=== PATIENT | male | born 1935 | race Caucasian/White ===

== ENCOUNTER 2020-07-02 07:31 | Emergency (ER) | payer OTHER, SELFPAY ==
--- NOTE | ~2020-07-02 | XR_ITS ---
EXAMINATION: XR shoulder LT min 2V DATE: 07/02/2020 08:22 INDICATION: Left shoulder injury. TECHNIQUE: 4 views of left shoulder were obtained. COMPARISON: None. FINDINGS: Bone alignment is normal. No fracture. There is mild osteoarthritis of glenohumeral joint a nd severe osteoarthritis of acromioclavicular joint. IMPRESSION: 1. Polyarticular osteoarthritis. Reviewed, dictated and finalized at location A.
--- NOTE | ~2020-07-02 | XR_ITS ---
EXAMINATION: XR clavicle LT DATE: 07/02/2020 08:22 INDICATION: Left shoulder injury. TECHNIQUE: 2 views of left clavicle were obtained. COMPARISON: None. FINDINGS: Bone alignment is normal. No fracture. Coracoclavicular interval is normal. There is mild o steoarthritis of glenohumeral joint and severe osteoarthritis of acromioclavicular joint. IMPRESSION: 1. Polyarticular osteoarthritis. Reviewed, dictated and finalized at location A.
[2020-07-02 07:40] VITALS: BP 177/100; PULSE 49; RESP 18; TEMP 36.6; O2SAT 93
[2020-07-02] MEDS: KETOROLAC (*BKC) 60 MG/2 ML VIAL IM (08:04)
[2020-07-02 08:32] LABS: Hematocrit 44.6 % (37.0-46.0); Mean Corpuscular HGB Conc 33.6 g/dL (32.0-36.0); Mean Corpuscular Hemoglobin 31.9 pg (27.0-31.0); Mean Corpuscular Volume 94.9 fL (78.0-102.0); Platelet Count Result 264 K/mm3 (150-420); Red Cell Distribution Width 13.1 % (11.6-14.4); White Blood Count 9.8 K/mm3 (4.8-10.8)
--- NOTE | 2020-07-02 08:44 | ED.UPPEXIN ---
HPI - Extremity Injury (Upper) General Chief Complaint: Extremity Injury, Upper Stated Complaint: injury to left shoulder Source: patient and family Mode of arrival: ambulatory History of Present Illness HPI narrative: Is an 85-year-old male with a history of hypertension and hypothyroidism that presents to the emergency department after he fell early this morning, lost his footing going down his backyard steps and injuring his left shoulder area with some small abrasion to his elbow, no loss of consciousness in has a decreased range of motion of his left shoulder secondary to pain, pain level about 8/10 pain. No loss of consciousness, no blurry vision no headaches no nausea vomiting no other sites of injury not complaining of any other injuries except to his left shoulder area. complaint: injury to: left Onset (ago): hour(s) Other Extremity Injury: Left: shoulder Severity scale (1-10): 8 Relieving factors: cold therapy Exacerbating factors: immobilization Context: fall Related Data Home Medications Medication Instructions Recorded Confirmed amlodipine 5 mg PO DAILY 07/02/20 07/02/20 donepezil 5 mg PO DAILY 07/02/20 07/02/20 hydrochlorothiazide 12.5 mg PO DAILY 07/02/20 07/02/20 levothyroxine 112 mcg PO DAILY 07/02/20 07/02/20 losartan 100 mg PO DAILY 07/02/20 07/02/20 Allergies Allergy/AdvReac Type Severity Reaction Status Date / Time No Known Allergies Allergy Verified 07/02/20 07:49 Review of Systems Review of Systems: All systems reviewed & are unremarkable except as noted in HPI and below PMFSH Past Medical History Medical History Dementia HTN (hypertension) Hypothyroidism (acquired) Exam Const: General: no acute distress and alert Orientation/consciousness: patient oriented x3 HENMT: Head: normal to inspection Eyes: Conjunctivae: conjunctivae normal Pupils: Equal, round and reactive pupils present EOM: EOMs intact bilaterally Neck: Neck: normal visual inspection, no lymphadenopathy and no meningeal signs Chest: Chest palpation & inspection: normal inspection of the chest Resp: Effort & Inspection: normal respiratory effort Auscultation: clear to auscultation bilaterally Cardio: Rate: regular rate Rhythm: regular rhythm GI: GI Palp: Yes Soft to palpation Auscultation: normal bowel sounds : Testes: Testes normal Back/Spine/Pelvis: Back: no CVA tenderness Skin: Wounds: wounds noted ( abrasion to left elbow area) Extrem: Other: pain elicited to the left shoulder area with palpation with a decreased range of motion has a good brisk brachial and radial pulse on the left currently no numbness or tingling in his left shoulder arm or fingers Course Course Emergency Course: reassessment of patient continues have a decreased range of motion in left shoulder, pain medicine given IM Toradol helped reduce his pain level, advised patient to follow-up with primary care physician within the next day or 2 for further evaluation treatment. Vital Signs Vital signs: Vital Signs Temperature 36.6 C 07/02/20 07:40 Pulse Rate 49 L 07/02/20 07:40 Respiratory Rate 18 07/02/20 07:40 Blood Pressure 177/100 H 07/02/20 07:40 Pulse Oximetry 93 07/02/20 07:40 Temperature 36.6 C 07/02/20 07:40 Pulse Rate 49 L 07/02/20 07:40 Respiratory Rate 18 07/02/20 07:40 Blood Pressure 177/100 H 07/02/20 07:40 Pulse Oximetry 93 07/02/20 07:40 MDM - Extremity Injury (Upper) Lab Data Result diagrams: 07/02/20 08:19 07/02/20 08:19 Labs: Lab Results 07/02/20 07/02/20 07/02/20 Range/Units 08:19 08:19 08:19 WBC 9.8 (4.8-10.8) K/mm3 RBC 4.70 (4.70-6.10) M/mm3 Hgb 15.0 (12.4-15.3) g/dL Hct 44.6 (37.0-46.0) % MCV 94.9 (78.0-102.0) fL MCH 31.9 H (27.0-31.0) pg MCHC 33.6 (32.0-36.0) g/dL RDW 13.1 (11.6-14.4) % Plt Count 264 (150-420) K/mm3 MPV 10.0
[2020-07-02 08:45] LABS: INR 1.1; Partial Thromboplastin Time 29.6 SEC (22.3-31.6); Prothrombin Time 11.4 Seconds (9.64-11.0)
[2020-07-02 08:47] LABS: Alanine Aminotransferase 24 U/L (16-63); Albumin Level 3.6 g/dL (3.4-5.0); Alkaline Phosphatase 117 U/L (46-116); Anion Gap 8 mmol/L (8-16); Aspartate Amino Transferase 32 U/L (15-37); Bilirubin,Total 0.7 mg/dL (0.00-1.00); Blood Urea Nitrogen 20 mg/dL (7-18); Calcium 8.4 mg/dL (8.5-10.1); Carbon Dioxide 27 mmol/L (21-32); Chloride 103 mmol/L (98-108); Estimated CRCL calculation 38 ml/min; Estimated Glomerular Filt Rate 54; Glucose 123 mg/dL (70-99); Osmolality Calculated 289 mOsm/kg (285-295); Potassium 4.2 mmol/L (3.5-5.1); Sodium 138 mmol/L (136-145); Total Protein 7.8 g/dL (6.4-8.2)
[2020-07-02 08:55] VITALS: BP 158/86; PULSE 50; RESP 20; TEMP 36.8; O2SAT 98
== END 2020-07-02 09:08 | disposition home or self-care (01) ==
PROVIDERS: Emergency Provider Emergency Medicine; PCP Internal Medicine
DX: S43.422A Sprain of left rotator cuff capsule, initial encounter (principal); W19.XXXA Unspecified fall, initial encounter; I10 Essential (primary) hypertension; E03.9 Hypothyroidism, unspecified
CPT/HCPCS: 36415; 73000; 73030; 80053; 85027; 85610; 85730; 96372; 99282; 99283; A4565; J1885

== ENCOUNTER 2020-08-30 14:49 | Emergency (ER) | payer OTHER, SELFPAY ==
--- NOTE | ~2020-08-30 | XR_ITS ---
XR tibia fibula RT 2V DATE: 08/30/2020 15:21 INDICATION: Right lower leg injury, pain TECHNIQUE: AP and lateral views COMPARISON: 09/07/2009 right knee FINDINGS: There is osteoarthritic spurring at the patellofemoral joint. Diffuse osteopenia. No fracture or dislocation, periosteal reaction or bone destruction of the tibia or fibula. Normal al ignment at the knee and ankle joints. IMPRESSION: Osteopenia Osteoarthritis at the right knee joint Reviewed, dictated and finalized at location A.
[2020-08-30 15:00] VITALS: BP 141/62; PULSE 52; RESP 16; TEMP 36.6; O2SAT 97
--- NOTE | 2020-08-30 15:04 | ED.LOWEXIN ---
HPI - Extremity Injury (Lower) General Chief Complaint: Extremity Injury, Lower Stated Complaint: injured leg Time Seen by Provider: 08/30/20 15:04 Source: patient Limitations: no limitations History of Present Illness HPI Narrative: 85-year-old man comes in today and by wheelchair complaining of right leg pain with ambulation. He states that yesterday he was sawing a board when it shot out and struck him in the right ambriz. He denies any other injury. His says it has been a long time since his last tetanus shot. He denies any knee or ankle pain. complaint: leg injury Onset (ago): day(s) (1) Injury: Right: ankle Type of Injury: blunt Place: home Severity: moderate Relieving factors: rest Exacerbating factors: weight bearing Context: direct blow Associated symptoms: unable to bear weight Related Data Home Medications Medication Instructions Recorded Confirmed amlodipine 5 mg PO DAILY 07/02/20 08/30/20 donepezil 10 mg PO DAILY 07/02/20 08/30/20 losartan 100 mg PO DAILY 07/02/20 08/30/20 levothyroxine 125 mcg PO DAILY 08/30/20 08/30/20 Allergies Allergy/AdvReac Type Severity Reaction Status Date / Time No Known Allergies Allergy Verified 07/02/20 07:49 Review of Systems Gastrointestinal: Gastrointestinal: Denies nausea and Denies vomiting Musculoskeletal: Musculoskeletal: Denies arthralgias and Denies joint swelling Integumentary/Breasts: Skin/Breast: Denies pruritus, Denies rash and Denies skin ulcer Comments: contusion/abrasion on right ambriz Neurologic: Denies vertigo, Reports dizziness and Denies syncope Hematologic/Lymphatic: Hematologic/Lymphatic: Denies easy bleeding and Denies easy bruising PMFSH Past Medical History Medical History (Updated 08/30/20 @ 15:16 by Mateusz Craft MD) Dementia HTN (hypertension) Hypothyroidism (acquired) Surgical History Surgical History (Updated 08/30/20 @ 15:13 by Mateusz Craft MD) History of back surgery Social History Social History Smoking status: Never smoker Alcohol intake: never Substance use: never Living arrangements: with family Occupation/Education: retired Exam Const: General: healthy appearing, no acute distress and alert Orientation/consciousness: patient oriented x3 Limitations: no limitations Eyes: Conjunctivae: conjunctivae normal Pupils: Equal, round and reactive pupils present EOM: EOMs intact bilaterally Resp: Effort & Inspection: normal respiratory effort and not labored Auscultation: clear to auscultation bilaterally, no rales, no rhonchi and no wheezes Cardio: Rate: regular rate Rhythm: regular rhythm Heart sounds: no murmurs Skin: General skin exam: normal color, no jaundice and no pallor Rashes: no rashes Other: 2.5 cm abrasion/contusion over the right middle ambriz. Minimal swelling. He has normal range of motion of the right hip knee and ankle. There is no calf tenderness or swelling. Neuro: General: patient oriented x3, moves all extremities and CN's II-XI intact bilaterally Speech: normal speech Course Vital Signs Vital signs: Vital Signs Temperature 36.6 C 08/30/20 15:00 Pulse Rate 52 L 08/30/20 15:00 Respiratory Rate 16 08/30/20 15:00 Blood Pressure 141/62 H 08/30/20 15:00 Pulse Oximetry 97 08/30/20 15:00 Temperature 36.6 C 08/30/20 15:00 Pulse Rate 52 L 08/30/20 15:00 Respiratory Rate 16 08/30/20 15:00 Blood Pressure 141/62 H 08/30/20 15:00 Pulse Oximetry 97 08/30/20 15:00 MDM - Extremity Injury (Lower) Differential Diagnosis Differential diagnosis: Likely other ( Contusion, tibia or fibula fracture. ) Discharge Plan Discharge Clinical Impression: Contusion of leg, right Qualifiers: Encounter type: initial encounter Qualified Code(s): S80.11XA - Contusion of right lower leg, initial encounter Patient Disposition: Home, Self-Care Condition: Stable Instructions:
[2020-08-30] MEDS: TETANUS,DIPHTHERIA,AC PERTUSSIS ADULT 0.5 ML (ADACEL) IM (15:12)
[2020-08-30 15:52] VITALS: RESP 19
== END 2020-08-30 15:52 | disposition home or self-care (01) ==
PROVIDERS: Emergency Provider Emergency Medicine; PCP Internal Medicine
DX: S80.11XA Contusion of right lower leg, initial encounter (principal); I10 Essential (primary) hypertension; E03.9 Hypothyroidism, unspecified
CPT/HCPCS: 73590; 90471; 90715; 99282; 99283

== ENCOUNTER 2021-03-22 08:08 | Outpatient (CLI) | payer OTHER, SELFPAY ==
--- NOTE | ~2021-03-22 | US_ITS ---
EXAMINATION: US art doppler w press LE BI DATE: 03/22/2021 09:22 INDICATION: Peripheral vascular disease with nonhealing ulcers at the bilateral lower limbs. TECHNIQUE: Segmental pressures and plethysmographic and Doppler waveforms of the brachial and lower e xtremity arteries were obtained. COMPARISON: None. FINDINGS: Right and left brachial artery pressures of 158 mm Hg and 167 mm Hg, respectively, are concordant (no rmal difference <= 30 mmHg). The right and left high-thigh pressure indices are 1.08 and 0.99, respec tively (normal > 1.2). The right ankle-brachial index (ANDRES) is 0.76 (normal >= 0.9-1). The right great toe-brachial index (T BI) is 0.49 (normal >= 0.6-0.8). The right lower extremity segmental pressure gradients are increased between the right thigh and the right [id number] popliteal artery. (Normal gradients <= 20-30 mm Hg between adjacent levels on the same leg or the same levels on the two legs). There is also no disc ernible pulse in the right posterior tibial artery or evident vascular flow on color Doppler. Arteria l waveforms are biphasic with brisk systolic upstrokes and the arteries of the right lower limb with the exception of the occluded right posterior tibial artery. The left ANDRES is 0.50. The left TBI is 0.39. The left lower extremity segmental pressure gradients are increased between the left thigh and the above-knee popliteal artery. Arterial waveforms are biphasi c with brisk systolic upstrokes throughout. IMPRESSION: 1. Bilateral arterial occlusive disease with mild to moderately decreased right and moderate to sever christel decreased left ABIs and TBIs. 2. Occluded right posterior tibial artery. Reviewed, dictated and finalized at location A. IMPRESSION: 1. Bilateral arterial occlusive disease with mild to moderately decreased right and moderate to severely decreased left ABIs and TBIs. 2. Occluded right posterior tibial artery.
== END 2021-03-22 08:09 | disposition home or self-care (01) ==
PROVIDERS: PCP Internal Medicine; Visit Provider Podiatrist Foot & Ankle Surgery
DX: L97.918 Non-pressure chronic ulcer of unspecified part of right lower leg with other specified severity (principal); L97.928 Non-pressure chronic ulcer of unspecified part of left lower leg with other specified severity; I73.9 Peripheral vascular disease, unspecified
CPT/HCPCS: 93923

== ENCOUNTER 2022-02-02 14:41 | Inpatient (IN) | payer OTHER, SELFPAY ==
[2022-02-02] VITALS (13 sets, daily range): BP systolic 108–198; BP diastolic 68–95; PULSE 53–97; RESP 12–24; TEMP 36.6–36.8; O2SAT 92–97; BMI 26.4
--- NOTE | ~2022-02-02 | XR_ITS ---
EXAMINATION: XR hand RT min 3V DATE: 02/04/2022 15:22 INDICATION: Pain, swelling and bruising region of the third proximal interphalangeal joint post fall. TECHNIQUE: Posteroanterior, oblique and lateral views of the right hand were obtained. COMPARISON: None. FINDINGS: Diffuse osteopenia. No fracture or traumatic malalignment. Polyarticular osteoarthritis, severe at th e third metacarpophalangeal joint with secondary mild palmar subluxation. Moderate osteoarthritis at the distal radioulnar, first carpometacarpal and second and third distal interphalangeal joints. Mild osteoarthritis at the wrist, midcarpal, triscaphe, first and second metacarpophalangeal and remainin g interphalangeal joints. Soft tissue swelling throughout the right third digit. IMPRESSION: 1. No acute osseous abnormality. 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 Reviewed, dictated and finalized at location A. IMPRESSION: 1. No acute osseous abnormality. Moderate to severe polyarticular osteoarthriti s.
--- NOTE | ~2022-02-02 | XR_ITS ---
XR hip RT min 3V w AP pelvis 02/02/2022 15:11 Indication: Right hip pain after fall Procedure: 3 views right hip Comparison: 03/26/2015 Findings: There is a mildly displaced comminuted right femoral intertrochanteric fracture with medial displacement of the lesser trochanter. There is degenerative change of the hips and lower lumbar spi ne. Pelvic rings are intact. Impression: 1: Mildly displaced comminuted right femoral intertrochanteric fracture. Reviewed, dictated and finalized at location A. Impression: 1: Mildly displaced comminuted right femoral intertrochanteric fracture.
--- NOTE | ~2022-02-02 | XR_ITS ---
EXAMINATION: XR surgery orthopedic DATE: 02/03/2022 16:27 INDICATION: Internal fixation of an intratrochanteric right hip fracture TECHNIQUE: 5 fluoroscopic images of the right hip and femur were obtained during procedure performed by Dr. Huber. Radiologist was not present for the imaging or procedure. The amount of fluoroscopy t jenn used during this procedure was 1.1 minutes. COMPARISON: 02/02/2022 FINDINGS: Interval reduction of the mildly comminuted intertrochanteric fracture the proximal right femur the m ain proximal and distal weightbearing fragments now in near-anatomic alignment. This is fixed with a long antegrade intramedullary alesia with femoral neck dynamic compression screw and distal interlocking screw at the proximal femoral diaphysis. The intramedullary alesia extends to the distal metaphysis of the femur. There is small amount of residual distraction of a small lesser trochanteric fragment whic h is not included within the fixation. Right femoral head remains normally centered at the right acet abulum with normal joint space. IMPRESSION: 1. Near-anatomic alignment post open reduction internal fixation of a mildly comminuted intratrochant srini fracture of the proximal right femur. See procedure note for further detail. Reviewed, dictated and finalized at location A. IMPRESSION: 1. Near-anatomic alignment post open reduction internal fixation of a mildly co mminuted intratrochanteric fracture of the proximal right femur. See procedure note for further detail.
--- NOTE | 2022-02-02 14:48 | ECG_ITS ---
Measurements Intervals [place] Rate: 51 P: 40 FL: 175 QRS: -2 QRSD: 96 T: 46 QT: 506 QTc: 470 Interpretive Statements SINUS BRADYCARDIA MODERATE VOLTAGE CRITERIA FOR LVH, CONSIDER NORMAL VARIANT [MEETS CRITERIA IN ONE OF: R(aVL), S(V1), R(V5), R(V5/V6)+S(V1)] PROLONGED QT INTERVAL ABNORMAL ECG NO PREVIOUS ECG AVAILABLE FOR COMPARISON Electronically Signed On 02-02-2022 17:56:01 CDT by Mack Lee M.D.
[2022-02-02 15:29] LABS: Basophils Percent Auto 0.5 % (0.2-1.2); Eosinophils Absolute Auto 0.2 K/mm3 (0-0.3); Eosinophils Percent Auto 3.2 % (0-4.4); Hematocrit 41.2 % (42.0-52.0); Hemoglobin 13.7 g/dL (14.0-18.0); Immature Granulocyte Absolute 0.03 K/mm3 (0.00-0.031); Immature Granulocyte Percent A 0.4 % (0-0.5); Lymphocytes Absolute Auto 1.95 K/mm3 (0.9-3.2); Lymphocytes Percent Auto 26.2 % (18.3-44.2); Mean Corpuscular HGB Conc 33.3 g/dl (32-36); Mean Corpuscular Hemoglobin 32.5 pg (26-34); Mean Corpuscular Volume 97.6 fl (80-100); Mean Platelet Volume 10.2 fl (7.4-10.4); Monocytes Absolute Auto 0.7 K/mm3 (0.1-0.6); Monocytes Percent Auto 9.1 % (2.6-8.5); Neutrophils Absolute Auto 4.5 K/mm3 (1.3-6.7); Neutrophils Percent Auto 60.6 % (45.5-73.1); Platelet Count Result 245 k/mm3 (150-375); Red Blood Count 4.22 M/mm3 (4.6-6.20); Red Cell Distribution Width 13.7 % (11.5-14.5); White Blood Count 7.5 K/mm3 (4.5-10.0)
[2022-02-02 15:32] LABS: Alanine Aminotransferase 16 U/L (4-50); Albumin Level 3.9 g/dL (3.5-5.1); Alkaline Phosphatase 117 U/L (38-126); Anion Gap 4 mmol/L (8-16); Aspartate Amino Transferase 35 U/L (17-59); Bilirubin,Total 0.9 mg/dL (0.2-1.3); Blood Urea Nitrogen 16 mg/dL (9-20); Calcium 8.4 mg/dL (8.4-10.2); Carbon Dioxide 30 mmol/L (22-30); Chloride 105 mmol/L (98-107); Estimated CRCL calculation 49 ml/min; Estimated Glomerular Filt Rate > 60; Glucose 117 mg/dL (65-110); Potassium 3.8 mmol/L (3.4-5.0); Sodium 139 mmol/L (137-145)
--- NOTE | 2022-02-02 15:34 | ED.FALL ---
HPI - Fall General Chief Complaint: Fall Stated Complaint: FALL BROKEN HIP? Time Seen by Provider: 02/02/22 15:06 History of Present Illness HPI Narrative: 86 y/o male presents to the ER today for complaints of right hip pain after having fall at home. says that he has a history of dementia. He was walking from kitchen to the living room. She heard a noise like his leg hit the table. She came in the room as he was falling down. He has pain in right hip and is unable to move leg without significant pain. He was brought in by EMS. No numbness or tingling. Denies any other injury from the fall. Related Data Home Medications Medication Instructions Recorded Confirmed amlodipine 5 mg PO DAILY 07/02/20 08/30/20 donepezil 10 mg PO DAILY 07/02/20 08/30/20 levothyroxine 125 mcg PO DAILY 08/30/20 08/30/20 olmesartan 20 mg PO DAILY 02/02/22 sertraline 25 mg PO DAILY 02/02/22 tramadol 50 mg PO Q6H PRN 02/02/22 Allergies Allergy/AdvReac Type Severity Reaction Status Date / Time No Known Allergies Allergy Verified 07/02/20 07:49 Review of Systems Constitutional: Constitutional: Denies chills, Denies fever(s) and Denies weakness Eyes: Eyes: Reports no additional eye complaints ENT: Denies vertigo and Denies dizziness Cardiovascular: Cardiovascular: Denies chest pain Respiratory: Respiratory: Denies chest congestion, Denies cough, Denies dyspnea and Denies wheezing Gastrointestinal: Gastrointestinal: Denies abdominal pain, Denies constipation, Denies diarrhea, Denies nausea and Denies vomiting Genitourinary: Genitourinary: Reports no additional male genitourinary complaints Musculoskeletal: Musculoskeletal: Reports as per HPI, Denies back pain and Reports arthralgias Neurologic: Denies vertigo, Denies dizziness, Denies syncope, Denies headache(s), Denies numbness and Denies weakness Psychiatric: Psychiatric: Reports no additional psychiatric complaints Endocrine: Endocrine: Reports no additional endocrine complaints Hematologic/Lymphatic: Hematologic/Lymphatic: Denies easy bleeding and Denies easy bruising PMFSH Past Medical History Medical History Dementia HTN (hypertension) Hypothyroidism (acquired) Surgical History Surgical History History of back surgery Social History Social History Smoking status: Never smoker Alcohol intake: never Substance use: never Exam Const: General: no acute distress and alert (at baseline) HENMT: Head: normal to inspection Eyes: Conjunctivae: conjunctivae normal Pupils: Equal, round and reactive pupils present Neck: Neck: normal visual inspection Chest: Chest palpation & inspection: normal inspection of the chest Resp: Effort & Inspection: normal respiratory effort Cardio: Rate: regular rate Rhythm: regular rhythm GI: Auscultation: normal bowel sounds Other: non-tender Skin: General skin exam: normal color Rashes: no rashes Wounds: no wounds Neuro: General: CN's II-XI intact bilaterally Speech: Abnormal speech present Other: lower extremity sensation intact Extrem: Other: right leg externally rotated with shortening, severe pain in right hip with any movement Psych: Mental Status: mental status grossly normal Affect: normal affect Attitude: cooperative Course Course Emergency Course: [address] Mcelroy, will plan to admit to hospitalist service. 1635 Discussed with Amanda LUNA, hospitalist, accepting patient for admission to Dr. Azul. Vital Signs Vital signs: Vital Signs Temperature 36.6 C 02/02/22 14:36 Pulse Rate 58 L 02/02/22 14:36 Respiratory Rate 17 02/02/22 14:36 Blood Pressure 163/95 H 02/02/22 14:36 Pulse Oximetry 96 02/02/22 14:36 Temperature 36.6 C 02/02/22 14:36 Pulse Rate 53 L 02/02/22 16:16 Respirat
[2022-02-02 15:38] LABS: INR 1.1; Prothrombin Time 13.5 Seconds (11.1-14.7)
[2022-02-02] MEDS: MORPHINE SULFATE (*CRX) 2 MG/ML INJ IV PUSH ×2 (16:15→22:12)
[2022-02-02] MEDS: hydrALAZINE HCL 20 MG/ML VIAL 10 MG IV PUSH (16:15)
[2022-02-02] MEDS: ONDANSETRON INJ 4 MG/2 ML VIAL IV PUSH ×2 (17:16→22:12)
[2022-02-02 18:28] LABS: SARS-CoV-2 RNA PCR Negative
--- NOTE | 2022-02-02 19:00 | PM.IMHP ---
H&P: HPI History of Present Illness Date/Time: 02/02/22 19:00 Chief Complaint: Right hip pain after fall. Narrative: This is an 86-year-old male with dementia, hypertension, and hypothyroidism who presented to the emergency department via EMS from home for evaluation of right hip pain after a fall. Due to his dementia he is not able to provide a completely accurate history and as such some of the following is obtained via discussions with his at bedside, with the patient's permission. He is supposed to ambulate with a cane or a walker but he does not always do so. This afternoon the patient's heard a noise in the other room and when she came to check on him he was in the process of falling (not walking with his cane or walker) and he landed hard on his right hip. He complained of immediate pain in the hip with and they were unable to get him up. Imaging done on arrival to the ER showed a mildly displaced and comminuted right femoral intertrochanteric fracture and he is being admitted in this setting. At the time my evaluation he is complaining of nausea and he had several episodes of emesis after receiving IV morphine. He has no other complaints and is really not having much hip discomfort if he is lying still. The patient and his deny other injuries; they specifically deny head trauma and loss of consciousness in the fall. The patient does not remember how he fell he does not think he was feeling lightheaded or dizzy prior to the fall. Review of Systems Review of Systems: Twelve systems were reviewed. Somewhat limited given the patient's underlying dementia. does provide a majority of the answers. He has not had any recent cold or flu symptoms. No sick contacts. He has never complained of chest pain or shortness of breath. No known history of cardiac or pulmonary disease. The patient occasionally wanders at nighttime. He will get a bit irritable and angry but he has never demonstrate aggressive behavior. Except as documented, all other systems were negative. [facility] Past Medical History Medical History (Updated 02/02/22 @ 22:34 by Amanda Gee PA-C) Dementia Hypertension Hypothyroidism (acquired) Surgical History Surgical History (Updated 02/02/22 @ 22:31 by Amanda Gee PA-C) History of back surgery History of cataract extraction with lens replacement History of lumbar laminectomy L4-L5. Family History Family History (Updated 02/02/22 @ 22:31 by Amanda Gee PA-C) Other Family history unknown Social History Social History (Updated 02/02/22 @ 22:32 by Amanda Gee PA-C) Social History: Surrogate decision maker: Dixie Shoemaker, . Code status: Full code. Smoking status: Former smoker Alcohol intake: never Substance use: never Additional living arrangements comments: The patient lives with his in [place]. 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 Spiritual care concerns: No Meds Home Medications and Allergies Home Medications Medication Instructions Recorded Confirmed Type amlodipine 5 mg PO DAILY 07/02/20 08/30/20 History donepezil 10 mg PO DAILY 07/02/20 08/30/20 History levothyroxine 125 mcg PO DAILY 08/30/20 08/30/20 History olmesartan 20 mg PO DAILY 02/02/22 History sertraline 25 mg PO DAILY 02/02/22 History tramadol 50 mg PO Q6H PRN 02/02/22 History Allergies Allergy/AdvReac Type Severity Reaction Status Date / Time No Known Allergies Allergy Verified 07/02/20 07:49 Vital Signs Vital Signs - 24 hr 02/02/22 14:36 02/02/22 16:16 02/02/22 16:52 Temperature 97.9 F Pulse Rate 58 L 53 L 64 Respiratory Rate 17 16 12 Blood Pressure 163/95 H 198/94 H Pulse Oximetry 96 97 02/02/22 17:00 02/02/22 17:02 02/02/22 17:15 Temperature Pulse Rate 76 71 68 Respiratory Rate 19 24 H 15 Blood Pressure 148/94 H 145/94 H Pulse Oximetry 97 02/02/22 17:30 02/02/22 17:53 02/02/22 18:00 Temperatu
[2022-02-03] VITALS (16 sets, daily range): BP systolic 148–184; BP diastolic 61–97; PULSE 61–87; RESP 12–92; TEMP 36.3–37.4; O2SAT 85–98
[2022-02-03] MEDS: LEVOTHYROXINE SODIUM 125 MCG TABLET PO (05:53)
[2022-02-03] MEDS: traMADol HCL (*CRX) 25 MG TABLET PO (05:53)
[2022-02-03 07:12] LABS: Hematocrit 41.8 % (42.0-52.0); Hemoglobin 13.9 g/dL (14.0-18.0); Mean Corpuscular HGB Conc 33.3 g/dl (32-36); Mean Corpuscular Hemoglobin 31.9 pg (26-34); Mean Corpuscular Volume 95.9 fl (80-100); Mean Platelet Volume 10.1 fl (7.4-10.4); Platelet Count Result 230 k/mm3 (150-375); Red Blood Count 4.36 M/mm3 (4.6-6.20); Red Cell Distribution Width 13.7 % (11.5-14.5); White Blood Count 9.1 K/mm3 (4.5-10.0)
[2022-02-03 07:22] LABS: Anion Gap 5 mmol/L (8-16); Blood Urea Nitrogen 15 mg/dL (9-20); Calcium 8.8 mg/dL (8.4-10.2); Carbon Dioxide 28 mmol/L (22-30); Chloride 104 mmol/L (98-107); Estimated CRCL calculation 49 ml/min; Estimated Glomerular Filt Rate > 60; Glucose 145 mg/dL (65-110); Sodium 137 mmol/L (137-145)
[2022-02-03 07:59] LABS: Glucose Point of Care 139 mg/dl (65-105)
[2022-02-03] MEDS: SERTRALINE HCL 25 MG TABLET PO (08:37)
[2022-02-03] MEDS: amLODIPine BESYLATE 5 MG TABLET PO (08:37)
[2022-02-03] MEDS: OLMESARTAN MEDOXOMIL 20 MG TABLET PO (08:38)
--- NOTE | 2022-02-03 09:30 | PM.IMPN ---
Progress Note: A&P Assessment and Plan (1) Closed intertrochanteric fracture of right femur: Qualifiers: Encounter type: initial encounter Fracture alignment: nondisplaced Qualified Code(s): S72.144A - Nondisplaced intertrochanteric fracture of right femur, initial encounter for closed fracture Code(s): S72.141A - Displaced intertrochanteric fracture of right femur, initial encounter for closed fracture Status: Acute Assessment and Plan: Imaging showed a close inter trochanteric fracture of the right femur NPO after midnight for possible surgical repair tomorrow per Dr. Huber. Analgesics available as needed Post op care per ortho EKG SB DVT prophylaxis per ortho (2) Fall from ground level: Code(s): W18.30XA - Fall on same level, unspecified, initial encounter Status: Acute Assessment and Plan: Ambulates with a cane or walker at baseline not always compliant Fall on the right side xray shows a femur fracture (3) Dementia: Code(s): F03.90 - Unspecified dementia without behavioral disturbance Status: Acute Assessment and Plan: A&O x 1 seems to be at baseline Continue donepezil and sertraline (4) Hypertension: Code(s): I10 - Essential (primary) hypertension Status: Acute Assessment and Plan: BP 148/97 running a bit high, likely due to pain. antihypertensives restarted Trend BP adjust therapy indicated (5) Hypothyroidism (acquired): Code(s): E03.9 - Hypothyroidism, unspecified Status: Acute Assessment and Plan: Continue levothyroxine TSH 6.170, T4 pending Titrate levothyroxine as indicated Time Spent With Patient Time with patient: Greater than 35 minutes Subjective Date/time seen: 02/03/22 0930 Interval history: Date/Time: 02/02/22 19:00 Narrative: This is an 86-year-old male with dementia, hypertension, and hypothyroidism who presented to the emergency department via EMS from home for evaluation of right hip pain after a fall. Due to his dementia he is not able to provide a completely accurate history and as such some of the following is obtained via discussions with his at bedside, with the patient's permission. He is supposed to ambulate with a cane or a walker but he does not always do so. This afternoon the patient's heard a noise in the other room and when she came to check on him he was in the process of falling (not walking with his cane or walker) and he landed hard on his right hip. He complained of immediate pain in the hip with and they were unable to get him up. Imaging done on arrival to the ER showed a mildly displaced and comminuted right femoral intertrochanteric fracture and he is being admitted in this setting. At the time my evaluation he is complaining of nausea and he had several episodes of emesis after receiving IV morphine. He has no other complaints and is really not having much hip discomfort if he is lying still. The patient and his deny other injuries; they specifically deny head trauma and loss of consciousness in the fall. The patient does not remember how he fell he does not think he was feeling lightheaded or dizzy prior to the fall. Date/Time 02/03/22 0930 Patient was lying in bed he was trying to urinate. I feel like he could not figure it out because he got very frustrated through the urinal. He is very hard of hearing alert oriented x1. He denied having any complaints even pain. Review of systems was unreliable due to patient's mental status and healthcare condition. Review of Systems Review of Systems: All systems reviewed & are unremarkable except as noted in HPI and below ROS unobtainable: Yes unobtainable due to mental status Exam Const: General: cooperative, healthy appearing, no acute distress, well developed, alert and awake Nutritional Appearance: well nourished Orientation/conscio
--- NOTE | 2022-02-03 10:11 | PC.NURSE ---
I received a call from pt's primary care provider's case therapist who wanted an update on pt's condition and provided me with the PCP's name and phone number and asked that I call him. PCP Dr. Mckeon ([phone]) has been pt's PCP for more than 20 years and pt's daughter works for Dr. Mckeon as well so he is very well versed with pt's condition/history. Dr. Mckeon stated that he sees pt every three months and is regularly updated about changes in pt's health from pt's daughter as well. Dr. Mckeon stated that pt's orientation baseline is A&O 0-1. Dr. Mckeon also stated that he believes that pt needs to go to SNF after surgery and likely [facility] care facility after that and is offering his assistance to care coordination to make that happen.
--- NOTE | 2022-02-03 10:18 | PM.CNOR ---
Assessment and Plan Assessment and plan (1) Closed intertrochanteric fracture of right femur: Qualifiers: Encounter type: initial encounter Fracture alignment: displaced Qualified Code(s): S72.141A - Displaced intertrochanteric fracture of right femur, initial encounter for closed fracture Code(s): S72.141A - Displaced intertrochanteric fracture of right femur, initial encounter for closed fracture Status: Acute Assessment and Plan: Discussed nonoperative and operative treatment options with the patient and family and power of privacy attorney. Risks and benefits of each as well as alternatives were reviewed. All of the patient's and family questions were answered. The risks of surgery reviewed including but not limited to: Neurovascular damage, wound complication, infection, blood clot, pulmonary embolus, stroke, myocardial infarction, and anesthetic risks up to and including . Continued pain and possible dysfunction were explained. Specific risks of the procedure including later recurrence of deformity. No guarantees were offered. If hardware used, discussed risk of failure/ breakage and possible need for removal. If complications occur, the patient understands the need for further treatment, possible further surgery. Patient and power of privacy attorney verbalizes understanding and wishes to proceed. PLAN: Right hip trochanteric nail History of Present Illness HPI Consult date: 02/03/22 Requesting physician: Amanda Gee PA-C Chief complaint: R Hip Fracture Narrative: 86-year-old gentleman with dementia but still living at home had a witnessed fall yesterday hitting the right leg on a table. Brought to the emergency room and found to have a hip fracture. Admitted for further care. Patient is awake but disoriented x3. Comfortable at rest but complains of right hip pain with passive movement of the leg. No report of loss of consciousness or head injury. Patient is a independent ambulator. Review of Systems Constitutional: Constitutional: Denies fever(s) Eyes: Eyes: Denies blurry vision ENT: Reports Normal hearing present Cardiovascular: Cardiovascular: Denies chest pain and Denies dyspnea Respiratory: Respiratory: Denies dyspnea and Denies wheezing Gastrointestinal: Gastrointestinal: Denies abdominal pain Genitourinary: Genitourinary: Denies urinary urgency Musculoskeletal: Musculoskeletal: Reports as per HPI and Denies numbness Integumentary/Breasts: Skin/Breast: Denies changing lesions and Denies sores Neurologic: Reports Normal hearing present, Denies behavioral changes, Denies confusion, Denies numbness and Denies convulsions Psychiatric: Psychiatric: Denies behavioral changes, Reports confusion (Disoriented x3) and Denies hallucinations Endocrine: Endocrine: Denies heat intolerance Hematologic/Lymphatic: Hematologic/Lymphatic: Denies easy bleeding Allergic/Immunologic: Allergic/Immunologic: Denies wheezing PMFSH Past Medical History Medical History Dementia Hypertension Hypothyroidism (acquired) Surgical History Surgical History History of back surgery History of cataract extraction with lens replacement History of lumbar laminectomy L4-L5. Family History Family History Other Family history unknown Social History Social History Social History: Surrogate decision maker: Dixie Shoemaker, . Code status: Full code. Smoking status: Former smoker Alcohol intake: never Substance use: never Additional living arrangements comments: The patient lives with his in [place]. 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 Spiritual care concerns: No Meds Home Medications and Allergies Home Medications Medi
[2022-02-03 13:34] LABS: Free T4 Free Thyroxine Reflex 0.98 ng/dL (0.78-2.19)
--- NOTE | 2022-02-03 14:05 | WPDANESEPPF ---
Anes - Initial Pre Proc Eval Procedure: Operation Date: 02/03/22 15:00 Proposed Procedures p Right Hip Intertrochanteric Nail - Fede Huber MD Date/Time: 02/03/22 14:05 Surgeon: Michaela Azul MD Pre Op Diagnosis: R Hip Fracture Patient Data Age: 86 Gender: M Height: 1.7 m Weight: 74 kg Last Vital Signs Temp 36.7 C 02/03/22 08:00 Pulse 68 02/03/22 08:00 Resp 92 H 02/03/22 08:00 BP 148/97 H 02/03/22 08:00 Pulse Ox 96 02/03/22 08:12 Allergies Allergy/AdvReac Type Severity Reaction Status Date / Time No Known Allergies Allergy Verified 07/02/20 07:49 Home Medications Medication Instructions Recorded Confirmed Type amlodipine 5 mg PO DAILY 07/02/20 08/30/20 History donepezil 10 mg PO DAILY 07/02/20 08/30/20 History levothyroxine 125 mcg PO DAILY 08/30/20 08/30/20 History olmesartan 20 mg PO DAILY 02/02/22 History sertraline 25 mg PO DAILY 02/02/22 History tramadol 50 mg PO Q6H PRN 02/02/22 History Laboratory Tests 02/02/22 02/02/22 02/02/22 14:58 14:58 14:58 WBC 7.5 K/mm3 K/mm3 (4.5-10.0) RBC 4.22 M/mm3 L M/mm3 (4.6-6.20) Hgb 13.7 g/dL L g/dL (14.0-18.0) Hct 41.2 % L % (42.0-52.0) MCV 97.6 fl fl (80-100) MCH 32.5 pg pg (26-34) MCHC 33.3 g/dl g/dl (32-36) RDW 13.7 % % (11.5-14.5) Plt Count 245 k/mm3 k/mm3 (150-375) MPV 10.2 fl fl (7.4-10.4) Immature Gran % (Auto) 0.4 % % (0-0.5) Neut % (Auto) 60.6 % % (45.5-73.1) Lymph % (Auto) 26.2 % % (18.3-44.2) [place] % (Auto) 9.1 % H % (2.6-8.5) Eos % (Auto) 3.2 % % (0-4.4) Baso % (Auto) 0.5 % % (0.2-1.2) Lymph # (Auto) 1.95 K/mm3 K/mm3 (0.9-3.2) [place] # (Auto) 0.7 K/mm3 H K/mm3 (0.1-0.6) Eos # (Auto) 0.2 K/mm3 K/mm3 (0-0.3) Baso # (Auto) 0.0 K/mm3 K/mm3 (0.0-0.1) Abs Immat Gran (auto) 0.03 K/mm3 K/mm3 (0.00-0.031) Absolute Neuts (auto) 4.5 K/mm3 K/mm3 (1.3-6.7) Absolute Nucleated RBC 0.0 K/mm3 K/mm3 (0.0-0.012) Nucleated RBC % 0.0 % % (0.0-0.2) PT 13.5 Seconds Seconds (11.1-14.7) INR 1.1 Sodium 139 mmol/L mmol/L (137-145) Potassium 3.8 mmol/L mmol/L (3.4-5.0) Chloride 105 mmol/L mmol/L (98-107) Carbon Dioxide 30 mmol/L mmol/L (22-30) Anion Gap 4 mmol/L L mmol/L (8-16) BUN 16 mg/dL mg/dL (9-20) Creatinine 0.90 mg/dL mg/dL (0.7-1.3) Estim Creat Clear Calc 49 ml/min ml/min Estimated GFR > 60 (59 - ) Glucose 117 mg/dL H mg/dL (65-110) POC Capillary Glucose Calcium 8.4 mg/dL mg/dL (8.4-10.2) Magnesium Total Bilirubin 0.9 mg/dL mg/dL (0.2-1.3) AST 35 U/L U/L (17-59) ALT 16 U/L U/L (4-50) Alkaline Phosphatase 117 U/L U/L (38-126) Total Protein 7.0 g/dL g/dL (6.3-8.2) Albumin 3.9 g/dL g/dL (3.5-5.1) TSH (Reflex) Free T4 Total T3 SARS-CoV-2 RNA (RT-PCR) Blood Type Antibody Screen 02/02/22 02/02/22 02/03/22 14:58 17:24 05:00 WBC RBC Hgb Hct MCV MCH MCHC RDW Plt Count MPV Immature Gran % (Auto) Neut % (Auto) Lymph % (Auto) [place] % (Auto) Eos % (Auto) Baso % (Auto) Lymph # (Auto) [place] # (Auto) Eos # (Auto) Baso # (Auto) Abs Immat Gran (auto) Absolute Neuts (auto) Absolute Nucleated RBC Nucleated RBC % PT INR Sodium
[2022-02-03 14:44] LABS: Total Triiodothyronine (T3) 1.06 NG/ML (0.97-1.69)
[2022-02-03] MEDS: ceFAZolin 2 GM/D5W 50 ML 2 GM/50 ML BAG IVPB (15:21)
--- NOTE | 2022-02-03 15:48 | PC.NURSE ---
Pt's daughter, Yesi, works for pt's PCP (Dr. Mateusz Mckeon). Yesi's contact information is [phone]. She is requesting that she be contacted when it is time to start discharge planning. This information has been passed on to care coordination.
[2022-02-03] MEDS: LACTATED RINGERS 1,000 ML 30 ML IV CONT (16:33)
--- NOTE | 2022-02-03 16:34 | P.OP_ITS ---
Procedure Note - Detailed Date of Procedure 02/03/22 Pre-op Diagnosis R Hip intertrochanteric Fracture Post-op Diagnosis Same Procedure Performed Right hip trochanteric nail Surgeon Fede Huber MD Staff Accountant 1st certified surgical assistant Anesthesia General Indications This is an 86 year-old man who fell sustaining a right hip intertrochanteric femur fracture. Indicated for reduction and intramedullary hip screw fixation, right hip. Description of Procedure After informed consent the operative extremity was marked in the preoperative holding area. Patient received intravenous antibiotics. The patient was taken to the operative room, placed in the supine position, general anesthesia induced by the anesthesia team, and was placed on a fracture table with longitudinal traction applied to the right leg. The non operative leg was extended out of the field. The hip fracture was reduced to near anatomic position and verified with image intensification. A time-out was performed confirming the patient, site of the surgery and plan. The right lower extremity was prepped and draped sterilely from the knee to the iliac crest region using a ChloraPrep skin solution. Incision was made just proximal to greater trochanter down to the subcutaneous tissues. Hemostasis controlled with electrocautery. Blunt dissection through the fascia to the tip of the greater trochanter. A starter awl was placed at the tip of the greater trochanter into the medullary canal of the femur. This was checked with image intensification and was in good position. Intramedullary guide alesia positioned. A one-step hand reaming done proximally. Intramedullary canal was reamed with a 12.5 millimeter flexible reamer. Measuring was then performed off of the guide alesia. Neck angle selected off of preoperative radiographs temp plating. 125 degree 11.5 X 390 mm Nail opened on the back table and assembled. This was then inserted over the guide alesia to the correct depth. Guide alesia removed. Lag screw was then placed with a stab incision over the lateral femur using a 10 blade knife. Blunt dissection down to the lateral side of the bone. Soft tissue protectors placed. Guide pin placed in the center center position of the femoral head and measured. 100 millimeter x 10.5 millimeter lag screw placed to correct depth and verified with image intensification. Traction then released from the leg and compression of the fracture performed with the external compression device. Proximal locking done. Distal locking of the nail then performed. Image intensification used to assist in positioning the drill. Drill measure and appropriate size screw placed to lock the nail. Final image intensification confirm reduction of the fracture and placement of the hardware. Wounds then thoroughly irrigated with antibiotic solution. Fascia repaired with 0 Vicryl interrupted suture. Subcutaneous tissue repaired with 2 Vicryl in a procedure and skin repaired with 3-0 Monocryl subcuticular stitch. Sterile dressings applied. Patient then awoke from anest hesia, extubated taken to recovery room stable condition. All sponge, needle and instrument counts correct at the end the case. Implants Implants used: Arthrex nail 125 degree angle 11.5 millimeter diameter 39 centimeter length nail, lag screw 10.5 millimeter x 100 millimeter length. 42 mm x 5 mm distal locking screw Estimated Blood Loss 100 Drains No Packing No Pathology None sent Complications None Condition Stable Disposition PACU
[2022-02-03] MEDS: SENNA/DOCUSATE SODIUM TABLET 2 TAB PO (22:06)
[2022-02-03] MEDS: SODIUM CHLORIDE 0.9% IV 1,000 ML 125 ML IV CONT (22:06)
[2022-02-04 03:33] VITALS: BP 164/74; PULSE 72; RESP 18; TEMP 36.6; O2SAT 94
[2022-02-04] MEDS: SODIUM CHLORIDE 0.9% IV 1,000 ML 125 ML IV CONT ×3 (04:48→17:10)
[2022-02-04] MEDS: LEVOTHYROXINE SODIUM 125 MCG TABLET PO (06:15)
[2022-02-04 06:48] LABS: Basophils Percent Auto 0.2 % (0.2-1.2); Hematocrit 40.8 % (42.0-52.0); Hemoglobin 13.8 g/dL (14.0-18.0); Immature Granulocyte Absolute 0.05 K/mm3 (0.00-0.031); Immature Granulocyte Percent A 0.5 % (0-0.5); Lymphocytes Absolute Auto 0.65 K/mm3 (0.9-3.2); Lymphocytes Percent Auto 6.5 % (18.3-44.2); Mean Corpuscular HGB Conc 33.8 g/dl (32-36); Mean Corpuscular Hemoglobin 31.9 pg (26-34); Mean Corpuscular Volume 94.2 fl (80-100); Mean Platelet Volume 10.4 fl (7.4-10.4); Monocytes Absolute Auto 0.8 K/mm3 (0.1-0.6); Monocytes Percent Auto 7.8 % (2.6-8.5); Neutrophils Absolute Auto 8.6 K/mm3 (1.3-6.7); Platelet Count Result 226 k/mm3 (150-375); Red Blood Count 4.33 M/mm3 (4.6-6.20); Red Cell Distribution Width 13.5 % (11.5-14.5); White Blood Count 10.1 K/mm3 (4.5-10.0)
[2022-02-04 06:49] LABS: Alanine Aminotransferase 21 U/L (4-50); Albumin Level 3.8 g/dL (3.5-5.1); Alkaline Phosphatase 103 U/L (38-126); Anion Gap 6 mmol/L (8-16); Aspartate Amino Transferase 50 U/L (17-59); Bilirubin,Total 1.4 mg/dL (0.2-1.3); Blood Urea Nitrogen 21 mg/dL (9-20); Calcium 8.6 mg/dL (8.4-10.2); Carbon Dioxide 27 mmol/L (22-30); Chloride 106 mmol/L (98-107); Estimated CRCL calculation 49 ml/min; Estimated Glomerular Filt Rate > 60; Glucose 143 mg/dL (65-110); Magnesium 1.9 mg/dL (1.6-2.3); Sodium 139 mmol/L (137-145)
--- NOTE | 2022-02-04 08:00 | PM.IMPN ---
Progress Note: A&P Assessment and Plan (1) Closed intertrochanteric fracture of right femur: Qualifiers: Encounter type: initial encounter Fracture alignment: displaced Qualified Code(s): S72.141A - Displaced intertrochanteric fracture of right femur, initial encounter for closed fracture Code(s): S72.141A - Displaced intertrochanteric fracture of right femur, initial encounter for closed fracture Status: Acute Assessment and Plan: Imaging showed a close inter trochanteric fracture of the right femur Surgical repair 02/03/22 Analgesics: Tramadol, Celebrex Bowel Miralax and senna Zofran for antiemetics Post op care per ortho Cefazolin x 3 bags EKG SB DVT prophylaxis Fondaparinux 2.5mg Sub Q Daily Wt bearing as tolerated PT/OT (2) Fall from ground level: Code(s): W18.30XA - Fall on same level, unspecified, initial encounter Status: Acute Assessment and Plan: Ambulates with a cane or walker at baseline not always compliant Fall on the right side xray shows a femur fracture (3) Dementia: Code(s): F03.90 - Unspecified dementia without behavioral disturbance Status: Acute Assessment and Plan: A&O x 1 seems to be at baseline Continue donepezil and sertraline (4) Hypertension: Code(s): I10 - Essential (primary) hypertension Status: Acute Assessment and Plan: BP 164/74 running a bit high, likely due to pain. antihypertensives restarted, increase amlodipine to 10mg PO Trend BP adjust therapy indicated (5) Hypothyroidism (acquired): Code(s): E03.9 - Hypothyroidism, unspecified Status: Acute Assessment and Plan: Continue levothyroxine TSH 6.170, T4 0.98, T3 1.06 Titrate levothyroxine as indicated Time Spent With Patient Time with patient: Greater than 35 minutes Subjective Date/time seen: 02/04/22 08:00 Interval history: Date/Time: 02/02/22 19:00 Narrative: This is an 86-year-old male with dementia, hypertension, and hypothyroidism who presented to the emergency department via EMS from home for evaluation of right hip pain after a fall. Due to his dementia he is not able to provide a completely accurate history and as such some of the following is obtained via discussions with his at bedside, with the patient's permission. He is supposed to ambulate with a cane or a walker but he does not always do so. This afternoon the patient's heard a noise in the other room and when she came to check on him he was in the process of falling (not walking with his cane or walker) and he landed hard on his right hip. He complained of immediate pain in the hip with and they were unable to get him up. Imaging done on arrival to the ER showed a mildly displaced and comminuted right femoral intertrochanteric fracture and he is being admitted in this setting. At the time my evaluation he is complaining of nausea and he had several episodes of emesis after receiving IV morphine. He has no other complaints and is really not having much hip discomfort if he is lying still. The patient and his deny other injuries; they specifically deny head trauma and loss of consciousness in the fall. The patient does not remember how he fell he does not think he was feeling lightheaded or dizzy prior to the fall. Date/Time 02/03/22 0930 Patient was lying in bed he was trying to urinate. I feel like he could not figure it out because he got very frustrated through the urinal. He is very hard of hearing alert oriented x1. He denied having any complaints even pain. Review of systems was unreliable due to patient's mental status and healthcare condition. Date/Time 02/04/22 0800 Patient was lying on his side. Patient stated that he was having pain on his coccyx bone. He denied any pain with his leg however when I moved his foot a little bit to check his pulse he did grimace an
--- NOTE | 2022-02-04 08:00 | P.PNIM_ITS ---
Progress Note: A&P Assessment and Plan (1) Closed intertrochanteric fracture of right femur: Qualifiers: Encounter type: initial encounter Fracture alignment: displaced Qualified Code(s): S72.141A - Displaced intertrochanteric fracture of right femur, initial encounter for closed fracture Code(s): S72.141A - Displaced intertrochanteric fracture of right femur, initial encounter for closed fracture Status: Acute Assessment and Plan: * Imaging showed a close inter trochanteric fracture of the right femur * Surgical repair 02/03/22 * Analgesics: Tramadol, Celebrex * Bowel Miralax and senna * Zofran for antiemetics * Post op care per ortho * Cefazolin x 3 bags * EKG SB * DVT prophylaxis Fondaparinux 2.5mg Sub Q Daily * Wt bearing as tolerated * PT/OT (2) Fall from ground level: Code(s): W18.30XA - Fall on same level, unspecified, initial encounter Status: Acute Assessment and Plan: * Ambulates with a cane or walker at baseline * not always compliant * Fall on the right side * xray shows a femur fracture (3) Dementia: Code(s): F03.90 - Unspecified dementia without behavioral disturbance Status: Acute Assessment and Plan: * A&O x 1 * seems to be at baseline * Continue donepezil and sertraline (4) Hypertension: Code(s): I10 - Essential (primary) hypertension Status: Acute Assessment and Plan: * BP 164/74 * running a bit high, likely due to pain. * antihypertensives restarted, increase amlodipine to 10mg PO * Trend BP * adjust therapy indicated (5) Hypothyroidism (acquired): Code(s): E03.9 - Hypothyroidism, unspecified Status: Acute Assessment and Plan: * Continue levothyroxine * TSH 6.170, T4 0.98, T3 1.06 * Titrate levothyroxine as indicated Time Spent With Patient Time with patient: Greater than 35 minutes Subjective Date/time seen: 02/04/22 08:00 Interval history: Date/Time: 02/02/22 19:00 Narrative: This is an 86-year-old male with dementia, hypertension, and hypothyroidism who presented to the emergency department via EMS from home for evaluation of right hip pain after a fall. Due to his dementia he is not able to provide a completely accurate history and as such some of the following is obtained via discussions with his at bedside, with the patient's permission. He is supposed to ambulate with a cane or a walker but he does not always do so. This afternoon the patient's heard a noise in the other room and when she came to check on him he was in the process of falling (not walking with his cane or walker) and he landed hard on his right hip. He complained of immediate pain in the hip with and they were unable to get him up. Imaging done on arrival to the ER showed a mildly displaced and comminuted right femoral intertrochanteric fracture and he is being admitted in this setting. At the time my evaluation he is complaining of nausea and he had several episodes of emesis after receiving IV morphine. He has no other complaints and is really not having much hip discomfort if he is lying still. The patient and his deny other injuries; they specifically deny head trauma and loss of consciousness in the f all. The patient does not remember how he fell he does not think he was feeling lightheaded or dizzy prior to the fall. Date/Time 02/03/22 0930 Patient was lying in bed he was trying to urinate. I feel like he could not figure it out because he
[2022-02-04] MEDS: polyethylene glycoL 3350 17 GM POWD.PACK PO (08:21)
[2022-02-04] MEDS: FONDAPARINUX SODIUM 2.5 MG/0.5 ML SYRINGE SUB-Q (08:21)
[2022-02-04] MEDS: traMADol HCL (*CRX) 25 MG TABLET PO (08:21)
[2022-02-04] MEDS: SENNA/DOCUSATE SODIUM TABLET 2 TAB PO ×2 (08:21→17:10)
[2022-02-04] MEDS: SERTRALINE HCL 25 MG TABLET PO (08:21)
[2022-02-04] MEDS: amLODIPine BESYLATE 5 MG TABLET 10 MG PO (08:22)
[2022-02-04] MEDS: CELECOXIB 200 MG CAPSULE PO (08:22)
[2022-02-04] MEDS: OLMESARTAN MEDOXOMIL 20 MG TABLET PO (08:22)
[2022-02-04] MEDS: DONEPEZIL HCL 10 MG TABLET PO (08:22)
--- NOTE | 2022-02-04 10:24 | PC.NURSE ---
at approximately 0930, pt pulled his IV from his arm including removing the edwina bandage covering the IV and was in the process of trying to remove the inflated dennis catheter as well. Pt had already removed the dressing(s) covering the incisions from his surgery the day before and was attempting to pick at the glue closing 2 of the incision sites. Dressings and protective coverings were placed on the incisions to protect them from pt. Pt was cleaned up as was the blood that had spurted all over the linens, pt, bed, and floor. A new IV was placed with protective kerlex and edwina wrap in an attempt to stop pt from pulling out this IV (his fourth).
--- NOTE | 2022-02-04 13:55 | PC.NURSE ---
After pt's extreme behavior this morning he was quite agitated so I was waiting to pull the dennis cather post op so as not to increase his already agitated state. Shortly thereafter, pt's explained to me that pt is unable to urinate at all if he is not standing fully erect. She also stated that he has been having retention issues for quite some time because his lack of orientation (baseline of A&O 0-1) he doesn't understand to stand up right and urinate so he just doesn't urinate at all. She continued by stating that even when pt was oriented he would sit on the toilet to defecate and then stand to urinate; He has always been that way. I contacted the hospitalist, Vikram Zayas, and explained the situation to him including statements from pt's and that when surgery put the dennis in place yesterday afternoon, there was an initial output of 1200mL which is consistent with the pt's 's narrative of him having ongoing retention issues. The hospitalist gave orders to leave the dennis in place for now and it would be reevaluated tomorrow.
[2022-02-04 14:00] VITALS: BP 150/48; PULSE 76; RESP 21; TEMP 35.9; O2SAT 93
[2022-02-04 14:05] VITALS: O2SAT 97
--- NOTE | 2022-02-04 14:19 | PM.PNORT ---
Progress Note: A&P Assessment and Plan (1) Closed intertrochanteric fracture of right femur: Onset Date: 02/02/22 Qualifiers: Encounter type: subsequent encounter Fracture alignment: displaced Fracture healing: with routine healing Qualified Code(s): S72.141D - Displaced intertrochanteric fracture of right femur, subsequent encounter for closed fracture with routine healing Code(s): S72.141A - Displaced intertrochanteric fracture of right femur, initial encounter for closed fracture Status: Acute Assessment and Plan: Postoperative day 1 right hip trochanteric nail. Dementia as per preoperative status. No complaints of pain. Neurovascular intact. PT/OT with weight bear as tolerated. Pain control. Will require placement. Disposition when medically stable. May use aspirin for DVT prophylaxis upon discharge. Limit pain medicine due to dementia. Subjective Subjective Date/Time Seen: 02/04/22 14:19 Post Op day: 1 Principal diagnosis: right intertrochanteric fracture Interval history: patient awake and alert. Dementia as per preop. Able to move toes. Denies pain. Exam Const: General: healthy appearing and confusion; No in distress Orientation/consciousness: No oriented to person, No oriented to place, No oriented to time, No patient oriented x3 and confusion HENMT: Head: normal to inspection, normocephalic and atraumatic Eyes: Conjunctivae: conjunctivae normal Sclera: sclerae normal Resp: Effort & Inspection: normal respiratory effort and no audible wheezes Neuro: General: No patient oriented x3 and confusion Extrem: Other: Right hip dressing clean and dry. Moves toes. Good sensation to touch. Good capillary refill and palpable DP pulses. Negative Homans sign. Psych: Affect: normal affect Objective Data Vital Signs Vital Signs: Vital Signs - 24 hr 02/03/22 16:33 02/03/22 16:45 02/03/22 17:00 Temperature 98.0 F Pulse Rate 76 74 70 Respiratory Rate 18 12 12 Blood Pressure 149/74 H 184/69 H 174/73 H Pulse Oximetry 97 98 94 02/03/22 17:15 02/03/22 17:30 02/03/22 17:45 Temperature 98.2 F Pulse Rate 70 75 70 Respiratory Rate 14 14 14 Blood Pressure 173/76 H 184/61 H 178/66 H Pulse Oximetry 96 95 95 02/03/22 19:33 02/03/22 21:13 02/03/22 23:33 Temperature 97.5 F L 97.4 F L Pulse Rate 67 68 87 Respiratory Rate 18 18 Blood Pressure 163/77 H 150/93 H Pulse Oximetry 94 97 90 02/04/22 03:33 02/04/22 14:05 Temperature 97.8 F Pulse Rate 72 Respiratory Rate 18 Blood Pressure 164/74 H Pulse Oximetry 94 97 Intake/Output Intake/Output: Intake & Output 02/01/22 02/02/22 02/03/22 02/04/22 23:59 23:59 23:59 23:59 Intake Total 300 2170 Balance 300 2170 Meds/Results Medications: Active Medications Generic Name Dose Route Start Last Admin Trade Name Freq PRN Reason Stop Dose Admin Acetaminophen 650 mg 02/02/22 22:38 Acetaminophen 325 Mg Tablet PO Q6H PRN Mild Pain (1-5) Or Fever Amlodipine Besylate 10 mg 02/04/22 09:00 02/04/22 08:22 Amlodipine Besylate 5 Mg Tablet PO 10 mg DAILY JONATHAN Administration Celecoxib 200 mg 02/04/22 08:00 02/04/22 08:22 Celecoxib 200 Mg Capsule PO 200 mg DAILY@0800 JONATHAN Administration Donepezil HCl 10 mg 02/04/22 09:00 02/04/22 08:22 Donepezil Hcl 10 Mg Tablet PO 10 mg DAILY JONATHAN Administration Fondaparinux 2.5 mg 02/04/22 09:00 02/04/22 08:21 Fondaparinux Sodium 2.5 Mg/0.5 Ml Syringe SUB-Q 2.5 mg DAILY JONATHAN Administration Sodium Chloride 1,000 mls @ 125 mls/hr 02/03/22 17:48 02/04/22 11:24 Normal Saline Iv IV CONT 125 mls/hr .Q8H JONATHAN Infusion Cefazolin Sodium 1 gm in 50 mls @ 100 mls/hr 02/03/22 23:00 02/04/22 07:08 Ancef 1 Gm/D5w 50 Ml Pm IVPB 02/04/22 15:29 Infused Q8H JONATHAN Infusion Levothyroxine Sodium 125 mcg 02/03/22 06:30 02/04/22 06:15 Levothyroxine Sodium 125 Mcg Tablet PO 125 mcg DAILY@0630 SC
[2022-02-04 14:58] VITALS: BP 152/75
--- NOTE | 2022-02-04 15:01 | P.PNAN_ITS ---
Anes - Prog Note Post-Op Date/Time: 02/04/22 15:01 Cardiovascular status: normal Respiratory status: normal Airway patency: baseline Mental status: baseline Post-Op hydration status: normal Vital Signs: Last Vital Signs Temp 35.9 C L 02/04/22 14:00 Pulse 76 02/04/22 14:00 Resp 21 H 02/04/22 14:00 BP 152/75 H 02/04/22 14:58 Pulse Ox 97 02/04/22 14:05 Pain Score (VAS): 3 I/O: Intake & Output 02/03/22 02/04/22 02/04/22 23:59 07:59 15:59 Intake Total 250 2170 Balance 250 2170 Laboratory Tests 02/04/22 05:54 02/04/22 06:27 02/04/22 02/04/22 05:54 06:27 WBC 10.1 H RBC 4.33 L Hgb 13.8 L Hct 40.8 L MCV 94.2 MCH 31.9 MCHC 33.8 RDW 13.5 Plt Count 226 MPV 10.4 Immature Gran % (Auto) 0.5 Neut % (Auto) 85.0 H Lymph % (Auto) 6.5 L [place] % (Auto) 7.8 Eos % (Auto) 0.0 Baso % (Auto) 0.2 Lymph # (Auto) 0.65 L [place] # (Auto) 0.8 H Eos # (Auto) 0.0 Baso # (Auto) 0.0 Abs Immat Gran (auto) 0.05 H Absolute Neuts (auto) 8.6 H Absolute Nucleated RBC 0.0 Nucleated RBC % 0.0 Sodium 139 Potassium 4.0 Chloride 106 Carbon Dioxide 27 Anion Gap 6 L BUN 21 H Creatinine 0.90 Estim Creat Clear Calc 49 Estimated GFR > 60 Glucose 143 H Calcium 8.6 Magnesium 1.9 Total Bilirubin 1.4 H AST 50 ALT 21 Alkaline Phosphatase 103 Total Protein 7.0 Albumin 3.8 Post-procedural complaints: none Patient Feedback: Patient satisfied with anesthetic care.
--- NOTE | 2022-02-04 18:16 | PC.NURSE ---
shortly after pt's left for the evening, pt began pulling his dennis catheter out, pulling his SCDs off, attempting to pull the incision dressings off, and trying to pull the protective wrap off his IV. We were able to stop him before his pulled the dennis entirely out, reapply the stat-lock, and adjust placement of the dennis. His IV was rewrapped for better coverage and the incision dressings were resecured as well. I will continue to monitor.
[2022-02-04 20:00] VITALS: PULSE 76; RESP 20; O2SAT 97
[2022-02-04 22:00] VITALS: BP 156/59; PULSE 62; RESP 16; TEMP 37.2; O2SAT 93
[2022-02-05] MEDS: SODIUM CHLORIDE 0.9% IV 1,000 ML 125 ML IV CONT ×2 (01:48→19:44)
[2022-02-05] MEDS: LEVOTHYROXINE SODIUM 125 MCG TABLET PO (05:51)
[2022-02-05 07:17] LABS: Basophils Percent Auto 0.3 % (0.2-1.2); Eosinophils Absolute Auto 0.8 K/mm3 (0-0.3); Eosinophils Percent Auto 10.2 % (0-4.4); Hematocrit 37.8 % (42.0-52.0); Hemoglobin 12.2 g/dL (14.0-18.0); Immature Granulocyte Absolute 0.02 K/mm3 (0.00-0.031); Immature Granulocyte Percent A 0.3 % (0-0.5); Lymphocytes Absolute Auto 1.23 K/mm3 (0.9-3.2); Lymphocytes Percent Auto 16.3 % (18.3-44.2); Mean Corpuscular HGB Conc 32.3 g/dl (32-36); Mean Corpuscular Hemoglobin 31.6 pg (26-34); Mean Corpuscular Volume 97.9 fl (80-100); Mean Platelet Volume 10.4 fl (7.4-10.4); Monocytes Absolute Auto 0.8 K/mm3 (0.1-0.6); Monocytes Percent Auto 10.2 % (2.6-8.5); Neutrophils Absolute Auto 4.7 K/mm3 (1.3-6.7); Neutrophils Percent Auto 62.7 % (45.5-73.1); Platelet Count Result 210 k/mm3 (150-375); Red Blood Count 3.86 M/mm3 (4.6-6.20); Red Cell Distribution Width 13.9 % (11.5-14.5); White Blood Count 7.6 K/mm3 (4.5-10.0)
[2022-02-05 07:32] LABS: Alanine Aminotransferase 16 U/L (4-50); Albumin Level 3.2 g/dL (3.5-5.1); Alkaline Phosphatase 89 U/L (38-126); Anion Gap 3 mmol/L (8-16); Aspartate Amino Transferase 49 U/L (17-59); Bilirubin,Total 1.2 mg/dL (0.2-1.3); Blood Urea Nitrogen 18 mg/dL (9-20); Calcium 7.9 mg/dL (8.4-10.2); Carbon Dioxide 28 mmol/L (22-30); Chloride 107 mmol/L (98-107); Estimated CRCL calculation 49 ml/min; Estimated Glomerular Filt Rate > 60; Glucose 117 mg/dL (65-110); Magnesium 1.9 mg/dL (1.6-2.3); Potassium 3.6 mmol/L (3.4-5.0); Sodium 138 mmol/L (137-145)
--- NOTE | 2022-02-05 07:47 | PC.NURSE ---
Pt has pulled out multiple IV's out passed couple days due to his confusion. His last IV was infiltrated due to keep pulling on it, causing it to become swollen (left arm). Denies any pain in that arm was assessed. Will continue to monitor and change IV site.
--- NOTE | 2022-02-05 07:54 | PCDIET ---
Pt morning vitals shows bp of 180/[address] King was reached, no further orders because vitals were mainly stable through out the night expect this one. Dr. King recommended to administer 0900 bp a bit earlier. Pt is stable and will continue to monitor .
[2022-02-05 08:00] VITALS: O2SAT 93
[2022-02-05 08:13] LABS: Glucose Point of Care 99 mg/dl (65-105)
--- NOTE | 2022-02-05 09:15 | P.PNIM_ITS ---
Progress Note: A&P Assessment and Plan (1) Closed intertrochanteric fracture of right femur: Onset Date: 02/02/22 Qualifiers: Encounter type: subsequent encounter Fracture alignment: displaced Fracture healing: with routine healing Qualified Code(s): S72.141D - Displaced intertrochanteric fracture of right femur, subsequent encounter for closed fracture with routine healing Code(s): S72.141A - Displaced intertrochanteric fracture of right femur, initial encounter for closed fracture Status: Acute Assessment and Plan: * Imaging showed a close inter trochanteric fracture of the right femur * Surgical repair 02/03/22 * Analgesics: Tramadol, Celebrex * Added on time dose of toradol * Bowel Miralax and senna * Zofran for antiemetics * Post op care per ortho * Cefazolin x 3 bags * EKG SB * DVT prophylaxis Fondaparinux 2.5mg Sub Q Daily * Wt bearing as tolerated * PT/OT (2) Fall from ground level: Code(s): W18.30XA - Fall on same level, unspecified, initial encounter Status: Acute Assessment and Plan: * Ambulates with a cane or walker at baseline * not always compliant * Fall on the right side * xray shows a femur fracture (3) Dementia: Code(s): F03.90 - Unspecified dementia without behavioral disturbance Status: Acute Assessment and Plan: * A&O x 1 * seems to be at baseline * Continue donepezil and sertraline (4) Hypertension: Code(s): I10 - Essential (primary) hypertension Status: Acute Assessment and Plan: * BP 156/59 * running a bit high, likely due to pain. * antihypertensives restarted, increase amlodipine to 10mg PO * Trend BP * adjust therapy indicated (5) Hypothyroidism (acquired): Code(s): E03.9 - Hypothyroidism, unspecified Status: Acute Assessment and Plan: * Continue levothyroxine * TSH 6.170, T4 0.98, T3 1.06 * Titrate levothyroxine as indicated (6) Urinary retention: Code(s): R33.9 - Retention of urine, unspecified Status: Acute Assessment and Plan: * Reported from the that patient does not urinate without standing * Urinary catheter in place right now * Will work with PT to get the catheter out * bladder scan PRN Time Spent With Patient Time with patient: Greater than 35 minutes Subjective Date/time seen: 02/05/22 09:15 Interval history: Date/Time: 02/02/22 19:00 Narrative: This is an 86-year-old male with dementia, hypertension, and hypothyroidism who presented to the emergency department via EMS from home for evaluation of right hip pain after a fall. Due to his dementia he is not able to provide a completely accurate history and as such some of the following is obtained via discussions with his at bedside, with the patient's permission. He is supposed to ambulate with a cane or a walker but he does not always do so. This afternoon the patient's heard a noise in the other room and when she came to check on him he was in the process of falling (not walking with his cane or walker) and he landed hard on his right hip. He complained of immediate pain in the hip with and they were unable to get him up. Imaging done on arrival to the ER showed a mildly displaced and comminuted right femoral intertrochanteric fracture and he is being admitted in this setting. At the time my evaluation he is complaining of nausea and he had several episodes of emesis after receivin
--- NOTE | 2022-02-05 09:15 | PM.IMPN ---
Progress Note: A&P Assessment and Plan (1) Closed intertrochanteric fracture of right femur: Onset Date: 02/02/22 Qualifiers: Encounter type: subsequent encounter Fracture alignment: displaced Fracture healing: with routine healing Qualified Code(s): S72.141D - Displaced intertrochanteric fracture of right femur, subsequent encounter for closed fracture with routine healing Code(s): S72.141A - Displaced intertrochanteric fracture of right femur, initial encounter for closed fracture Status: Acute Assessment and Plan: Imaging showed a close inter trochanteric fracture of the right femur Surgical repair 02/03/22 Analgesics: Tramadol, Celebrex Added on time dose of toradol Bowel Miralax and senna Zofran for antiemetics Post op care per ortho Cefazolin x 3 bags EKG SB DVT prophylaxis Fondaparinux 2.5mg Sub Q Daily Wt bearing as tolerated PT/OT (2) Fall from ground level: Code(s): W18.30XA - Fall on same level, unspecified, initial encounter Status: Acute Assessment and Plan: Ambulates with a cane or walker at baseline not always compliant Fall on the right side xray shows a femur fracture (3) Dementia: Code(s): F03.90 - Unspecified dementia without behavioral disturbance Status: Acute Assessment and Plan: A&O x 1 seems to be at baseline Continue donepezil and sertraline (4) Hypertension: Code(s): I10 - Essential (primary) hypertension Status: Acute Assessment and Plan: BP 156/59 running a bit high, likely due to pain. antihypertensives restarted, increase amlodipine to 10mg PO Trend BP adjust therapy indicated (5) Hypothyroidism (acquired): Code(s): E03.9 - Hypothyroidism, unspecified Status: Acute Assessment and Plan: Continue levothyroxine TSH 6.170, T4 0.98, T3 1.06 Titrate levothyroxine as indicated (6) Urinary retention: Code(s): R33.9 - Retention of urine, unspecified Status: Acute Assessment and Plan: Reported from the that patient does not urinate without standing Urinary catheter in place right now Will work with PT to get the catheter out bladder scan PRN Time Spent With Patient Time with patient: Greater than 35 minutes Subjective Date/time seen: 02/05/22 09:15 Interval history: Date/Time: 02/02/22 19:00 Narrative: This is an 86-year-old male with dementia, hypertension, and hypothyroidism who presented to the emergency department via EMS from home for evaluation of right hip pain after a fall. Due to his dementia he is not able to provide a completely accurate history and as such some of the following is obtained via discussions with his at bedside, with the patient's permission. He is supposed to ambulate with a cane or a walker but he does not always do so. This afternoon the patient's heard a noise in the other room and when she came to check on him he was in the process of falling (not walking with his cane or walker) and he landed hard on his right hip. He complained of immediate pain in the hip with and they were unable to get him up. Imaging done on arrival to the ER showed a mildly displaced and comminuted right femoral intertrochanteric fracture and he is being admitted in this setting. At the time my evaluation he is complaining of nausea and he had several episodes of emesis after receiving IV morphine. He has no other complaints and is really not having much hip discomfort if he is lying still. The patient and his deny other injuries; they specifically deny head trauma and loss of consciousness in the fall. The patient does not remember how he fell he does not think he was feeling lightheaded or dizzy prior to the fall. Date/Time 02/03/22 0930 Patient was lying in bed he was trying to urinate. I feel like he could not figure it out because he got very fru
[2022-02-05] MEDS: OLMESARTAN MEDOXOMIL 20 MG TABLET PO (10:27)
[2022-02-05] MEDS: SENNA/DOCUSATE SODIUM TABLET 2 TAB PO ×2 (10:27→17:47)
[2022-02-05] MEDS: DONEPEZIL HCL 10 MG TABLET PO (10:27)
[2022-02-05] MEDS: CELECOXIB 200 MG CAPSULE PO (10:27)
[2022-02-05] MEDS: amLODIPine BESYLATE 5 MG TABLET 10 MG PO (10:27)
[2022-02-05] MEDS: FONDAPARINUX SODIUM 2.5 MG/0.5 ML SYRINGE SUB-Q (10:28)
[2022-02-05] MEDS: SERTRALINE HCL 25 MG TABLET PO (10:28)
[2022-02-05] MEDS: polyethylene glycoL 3350 17 GM POWD.PACK PO (10:28)
--- NOTE | 2022-02-05 12:36 | PM.PNORT ---
Progress Note: A&P Additional Plan POD 4 DOING WELL. CONTINUE PT. Subjective Subjective Date/Time Seen: 02/05/22 12:36 POD 4 DOING WELL. HIS PAIN IS CONTROLLED. HE DOES HAVE SOME EXPECTED CONFUSION. HE IS APPROPRIATE AND ANSWERS QUESTIONS. 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 RIGHT HAND ECCHYMOSIS. NON TENDER MAKES COMPLETE FIST NV INTACT Objective Data Vital Signs Vital Signs: Vital Signs - 24 hr 02/04/22 14:00 02/04/22 14:05 02/04/22 14:58 Temperature 35.9 C L Pulse Rate 76 Respiratory Rate 21 H Blood Pressure 150/48 H 152/75 H Pulse Oximetry 93 97 02/04/22 20:00 02/04/22 22:00 Temperature 37.2 C Pulse Rate 76 62 Respiratory Rate 20 16 Blood Pressure 156/59 H Pulse Oximetry 97 93 Intake/Output Intake/Output: Intake & Output 02/02/22 02/03/22 02/04/22 02/05/22 23:59 23:59 23:59 23:59 Intake Total 300 3580 1000 Output Total 300 900 Balance 300 3280 100 Meds/Results Medications: Active Medications Generic Name Dose Route Start Last Admin Trade Name Freq PRN Reason Stop Dose Admin Acetaminophen 650 mg 02/02/22 22:38 Acetaminophen 325 Mg Tablet PO Q6H PRN Mild Pain (1-5) Or Fever Amlodipine Besylate 10 mg 02/04/22 09:00 02/05/22 10:27 Amlodipine Besylate 5 Mg Tablet PO 10 mg DAILY JONATHAN Administration Celecoxib 200 mg 02/04/22 08:00 02/05/22 10:27 Celecoxib 200 Mg Capsule PO 200 mg DAILY@0800 JONATHAN Administration Donepezil HCl 10 mg 02/04/22 09:00 02/05/22 10:27 Donepezil Hcl 10 Mg Tablet PO 10 mg DAILY JONATHAN Administration Fondaparinux 2.5 mg 02/04/22 09:00 02/05/22 10:28 Fondaparinux Sodium 2.5 Mg/0.5 Ml Syringe SUB-Q 2.5 mg DAILY JONATHAN Administration Sodium Chloride 1,000 mls @ 125 mls/hr 02/03/22 17:48 02/05/22 01:48 Normal Saline Iv IV CONT 125 mls/hr .Q8H JONATHAN Administration Levothyroxine Sodium 125 mcg 02/03/22 06:30 02/05/22 05:51 Levothyroxine Sodium 125 Mcg Tablet PO 125 mcg DAILY@0630 JONATHAN Administration Naloxone HCl 0.1 mg 02/03/22 17:48 Naloxone Hcl 0.4 Mg/Ml Vial IV PUSH Q2M PRN Opiate Reversal Olmesartan 20 mg 02/03/22 09:00 02/05/22 10:27 Olmesartan Medoxomil 20 Mg Tablet PO 20 mg DAILY JONATHAN Administration Ondansetron HCl 4 mg 02/03/22 17:48 Ondansetron Inj 4 Mg/2 Ml Vial IV PUSH Q4H PRN Nausea And Vomiting Polyethylene Glycol 17 gm 02/04/22 09:00 02/05/22 10:28 Polyethylene Glycol 3350 17 Gm Powd.Pack PO 17 gm QAM JONATHAN Administration Senna/Docusate Sodium 2 tab 02/03/22 17:48 02/05/22 10:27 Senna/Docusate Sodium Tablet PO 2 tab BID JONATHAN Administration Sertraline HCl 25 mg 02/03/22 09:00 02/05/22 10:28 Sertraline Hcl 25 Mg Tablet PO 25 mg DAILY JONATHAN Administration Tramadol HCl 25 mg 02/02/22 22:39 02/04/22 08:21 Tramadol Hcl (*Crx) 25 Mg Tablet PO 25 mg Q6H PRN Administration Pain 6-10 Radiology Results: ITS Impressions Hip/Pelvis X-Ray 02/02/22 15:26 Impression: 1: Mildly displaced comminuted right femoral intertrochanteric fracture. Intraoperative X-Ray 02/03/22 16:38 IMPRESSION: 1. Near-anatomic alignment post open reduction internal fixation of a mildly comminuted intratrochanteric fracture of the proximal right femur. See procedure note for further detail. Hand X-Ray 02/04/22 15:36 IMPRESSION: 1. No acute osseous abnormality. 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 Labs Labs: Laboratory Results - last 24 hr 02/05/22 02/05/22 02/05/22 06:28 06:28 07:57 WBC 7.6 RBC 3.86 L Hgb 12.2 L Hct 37.8 L MCV 97.9 MCH 31.6 MCHC 32.3 RDW 13.9 Plt Count 210 MPV 10.4 Immature Gran % (Auto) 0.3 Neut % (Auto) 62.7 Lymph % (Auto) 16.3 L [place] % (Auto) 10.2 H Eos % (Auto) 10.2 H Baso % (Auto) 0.3 Lymph # (Auto) 1.23 [place] # (Auto) 0.8 H
[2022-02-05] MEDS: KETOROLAC 15 MG/ML VIAL (*BKC) IV PUSH (15:56)
[2022-02-05 22:00] VITALS: BP 214/74; PULSE 67; RESP 16; TEMP 36.5; O2SAT 96
[2022-02-06 06:00] VITALS: BP 185/86; PULSE 65; RESP 18; TEMP 36.6; O2SAT 94
[2022-02-06 06:31] LABS: Basophils Percent Auto 0.6 % (0.2-1.2); Eosinophils Absolute Auto 0.2 K/mm3 (0-0.3); Eosinophils Percent Auto 2.7 % (0-4.4); Hematocrit 38.1 % (42.0-52.0); Hemoglobin 12.6 g/dL (14.0-18.0); Immature Granulocyte Absolute 0.03 K/mm3 (0.00-0.031); Immature Granulocyte Percent A 0.4 % (0-0.5); Lymphocytes Absolute Auto 0.73 K/mm3 (0.9-3.2); Lymphocytes Percent Auto 10.3 % (18.3-44.2); Mean Corpuscular HGB Conc 33.1 g/dl (32-36); Mean Corpuscular Hemoglobin 31.7 pg (26-34); Mean Corpuscular Volume 95.7 fl (80-100); Mean Platelet Volume 9.7 fl (7.4-10.4); Monocytes Absolute Auto 0.7 K/mm3 (0.1-0.6); Monocytes Percent Auto 9.7 % (2.6-8.5); Neutrophils Absolute Auto 5.4 K/mm3 (1.3-6.7); Neutrophils Percent Auto 76.3 % (45.5-73.1); Platelet Count Result 247 k/mm3 (150-375); Red Blood Count 3.98 M/mm3 (4.6-6.20); Red Cell Distribution Width 13.5 % (11.5-14.5); White Blood Count 7.1 K/mm3 (4.5-10.0)
[2022-02-06 06:45] LABS: Alanine Aminotransferase 19 U/L (4-50); Albumin Level 3.4 g/dL (3.5-5.1); Alkaline Phosphatase 102 U/L (38-126); Anion Gap 7 mmol/L (8-16); Aspartate Amino Transferase 45 U/L (17-59); Bilirubin,Total 1.5 mg/dL (0.2-1.3); Blood Urea Nitrogen 17 mg/dL (9-20); Carbon Dioxide 24 mmol/L (22-30); Chloride 106 mmol/L (98-107); Estimated CRCL calculation 55 ml/min; Estimated Glomerular Filt Rate > 60; Glucose 131 mg/dL (65-110); Magnesium 1.8 mg/dL (1.6-2.3); Potassium 3.7 mmol/L (3.4-5.0); Sodium 137 mmol/L (137-145)
[2022-02-06] MEDS: polyethylene glycoL 3350 17 GM POWD.PACK PO (09:11)
[2022-02-06] MEDS: CELECOXIB 200 MG CAPSULE PO (09:11)
[2022-02-06] MEDS: FONDAPARINUX SODIUM 2.5 MG/0.5 ML SYRINGE SUB-Q (09:11)
[2022-02-06] MEDS: SERTRALINE HCL 25 MG TABLET PO (09:11)
[2022-02-06] MEDS: SENNA/DOCUSATE SODIUM TABLET 2 TAB PO ×2 (09:11→16:40)
[2022-02-06] MEDS: amLODIPine BESYLATE 5 MG TABLET 10 MG PO (09:11)
[2022-02-06] MEDS: DONEPEZIL HCL 10 MG TABLET PO (09:12)
[2022-02-06] MEDS: OLMESARTAN MEDOXOMIL 20 MG TABLET 40 MG PO (09:13)
--- NOTE | 2022-02-06 11:15 | PM.IMPN ---
Progress Note: A&P Assessment and Plan (1) Closed intertrochanteric fracture of right femur: Onset Date: 02/02/22 Qualifiers: Encounter type: subsequent encounter Fracture alignment: displaced Fracture healing: with routine healing Qualified Code(s): S72.141D - Displaced intertrochanteric fracture of right femur, subsequent encounter for closed fracture with routine healing Code(s): S72.141A - Displaced intertrochanteric fracture of right femur, initial encounter for closed fracture Status: Acute Assessment and Plan: Imaging showed a close inter trochanteric fracture of the right femur Surgical repair 02/03/22 Analgesics: Tramadol, Celebrex Added on time dose of toradol Bowel Miralax and senna Zofran for antiemetics Post op care per ortho Cefazolin x 3 bags EKG SB DVT prophylaxis Fondaparinux 2.5mg Sub Q Daily Wt bearing as tolerated PT/OT (2) Fall from ground level: Code(s): W18.30XA - Fall on same level, unspecified, initial encounter Status: Acute Assessment and Plan: Ambulates with a cane or walker at baseline not always compliant Fall on the right side xray shows a femur fracture (3) Dementia: Code(s): F03.90 - Unspecified dementia without behavioral disturbance Status: Acute Assessment and Plan: A&O x 1 seems to be at baseline Continue donepezil and sertraline (4) Hypertension: Code(s): I10 - Essential (primary) hypertension Status: Acute Assessment and Plan: BP 185/86 Continues to run high antihypertensives restarted, increase amlodipine to 10mg PO, increased olmesartan to 40mg PO daily Trend BP adjust therapy indicated (5) Hypothyroidism (acquired): Code(s): E03.9 - Hypothyroidism, unspecified Status: Acute Assessment and Plan: Continue levothyroxine TSH 6.170, T4 0.98, T3 1.06 Titrate levothyroxine as indicated (6) Urinary retention: Code(s): R33.9 - Retention of urine, unspecified Status: Acute Assessment and Plan: Reported from the that patient does not urinate without standing Urinary catheter in place right now Will work with PT to get the catheter out bladder scan PRN Time Spent With Patient Time with patient: Greater than 35 minutes Subjective Date/time seen: 02/06/22 1115 Interval history: Date/Time: 02/02/22 19:00 Narrative: This is an 86-year-old male with dementia, hypertension, and hypothyroidism who presented to the emergency department via EMS from home for evaluation of right hip pain after a fall. Due to his dementia he is not able to provide a completely accurate history and as such some of the following is obtained via discussions with his at bedside, with the patient's permission. He is supposed to ambulate with a cane or a walker but he does not always do so. This afternoon the patient's heard a noise in the other room and when she came to check on him he was in the process of falling (not walking with his cane or walker) and he landed hard on his right hip. He complained of immediate pain in the hip with and they were unable to get him up. Imaging done on arrival to the ER showed a mildly displaced and comminuted right femoral intertrochanteric fracture and he is being admitted in this setting. At the time my evaluation he is complaining of nausea and he had several episodes of emesis after receiving IV morphine. He has no other complaints and is really not having much hip discomfort if he is lying still. The patient and his deny other injuries; they specifically deny head trauma and loss of consciousness in the fall. The patient does not remember how he fell he does not think he was feeling lightheaded or dizzy prior to the fall. Date/Time 02/03/22 0930 Patient was lying in bed he was trying to urinate. I feel like he could not figure it out bec
--- NOTE | 2022-02-06 11:15 | P.PNIM_ITS ---
Progress Note: A&P Assessment and Plan (1) Closed intertrochanteric fracture of right femur: Onset Date: 02/02/22 Qualifiers: Encounter type: subsequent encounter Fracture alignment: displaced Fracture healing: with routine healing Qualified Code(s): S72.141D - Displaced intertrochanteric fracture of right femur, subsequent encounter for closed fracture with routine healing Code(s): S72.141A - Displaced intertrochanteric fracture of right femur, initial encounter for closed fracture Status: Acute Assessment and Plan: * Imaging showed a close inter trochanteric fracture of the right femur * Surgical repair 02/03/22 * Analgesics: Tramadol, Celebrex * Added on time dose of toradol * Bowel Miralax and senna * Zofran for antiemetics * Post op care per ortho * Cefazolin x 3 bags * EKG SB * DVT prophylaxis Fondaparinux 2.5mg Sub Q Daily * Wt bearing as tolerated * PT/OT (2) Fall from ground level: Code(s): W18.30XA - Fall on same level, unspecified, initial encounter Status: Acute Assessment and Plan: * Ambulates with a cane or walker at baseline * not always compliant * Fall on the right side * xray shows a femur fracture (3) Dementia: Code(s): F03.90 - Unspecified dementia without behavioral disturbance Status: Acute Assessment and Plan: * A&O x 1 * seems to be at baseline * Continue donepezil and sertraline (4) Hypertension: Code(s): I10 - Essential (primary) hypertension Status: Acute Assessment and Plan: * BP 185/86 * Continues to run high * antihypertensives restarted, increase amlodipine to 10mg PO, increased olmesartan to 40mg PO daily * Trend BP * adjust therapy indicated (5) Hypothyroidism (acquired): Code(s): E03.9 - Hypothyroidism, unspecified Status: Acute Assessment and Plan: * Continue levothyroxine * TSH 6.170, T4 0.98, T3 1.06 * Titrate levothyroxine as indicated (6) Urinary retention: Code(s): R33.9 - Retention of urine, unspecified Status: Acute Assessment and Plan: * Reported from the that patient does not urinate without standing * Urinary catheter in place right now * Will work with PT to get the catheter out * bladder scan PRN Time Spent With Patient Time with patient: Greater than 35 minutes Subjective Date/time seen: 02/06/22 1115 Interval history: Date/Time: 02/02/22 19:00 Narrative: This is an 86-year-old male with dementia, hypertension, and hypothyroidism who presented to the emergency department via EMS from home for evaluation of right hip pain after a fall. Due to his dementia he is not able to provide a completely accurate history and as such some of the following is obtained via discussions with his at bedside, with the patient's permission. He is supposed to ambulate with a cane or a walker but he does not always do so. This afternoon the patient's heard a noise in the other room and when she came to check on him he was in the process of falling (not walking with his cane or walker) and he landed hard on his right hip. He complained of immediate pain in the hip with and they were unable to get him up. Imaging done on arrival to the ER showed a mildly displaced and comminuted right femoral intertrochanteric fracture and he is being admitted in this setting. At the time my evaluation he is complaining of nausea and he had several episodes of
--- NOTE | 2022-02-06 13:49 | PM.PNORT ---
Progress Note: A&P Additional Plan POD 5 DOING WELL. CONTINUE PT. Subjective Subjective Date/Time Seen: 02/06/22 13:49 POD 5 DOING WELL. HIS PAIN IS CONTROLLED. HE DOES HAVE SOME CONFUSION. HE IS APPROPRIATE. 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 RIGHT HAND ECCHYMOSIS. NON TENDER MAKES COMPLETE FIST NV INTACT Objective Data Vital Signs Vital Signs: Vital Signs - 24 hr 02/05/22 22:00 02/06/22 06:00 Temperature 36.5 C 36.6 C Pulse Rate 67 65 Respiratory Rate 16 18 Blood Pressure 214/74 H 185/86 H Pulse Oximetry 96 94 Intake/Output Intake/Output: Intake & Output 02/03/22 02/04/22 02/05/22 02/06/22 23:59 23:59 23:59 23:59 Intake Total 300 3580 2980 110 Output Total 300 1300 Balance 300 3280 1680 110 Meds/Results Medications: Active Medications Generic Name Dose Route Start Last Admin Trade Name Freq PRN Reason Stop Dose Admin Acetaminophen 650 mg 02/02/22 22:38 Acetaminophen 325 Mg Tablet PO Q6H PRN Mild Pain (1-5) Or Fever Amlodipine Besylate 10 mg 02/04/22 09:00 02/06/22 09:11 Amlodipine Besylate 5 Mg Tablet PO 10 mg DAILY JONATHAN Administration Celecoxib 200 mg 02/04/22 08:00 02/06/22 09:11 Celecoxib 200 Mg Capsule PO 200 mg DAILY@0800 JONATHAN Administration Donepezil HCl 10 mg 02/04/22 09:00 02/06/22 09:12 Donepezil Hcl 10 Mg Tablet PO 10 mg DAILY JONATHAN Administration Fondaparinux 2.5 mg 02/04/22 09:00 02/06/22 09:11 Fondaparinux Sodium 2.5 Mg/0.5 Ml Syringe SUB-Q 2.5 mg DAILY JONATHAN Administration Levothyroxine Sodium 125 mcg 02/03/22 06:30 02/06/22 05:22 Levothyroxine Sodium 125 Mcg Tablet PO Not Given DAILY@0630 JONATHAN Naloxone HCl 0.1 mg 02/03/22 17:48 Naloxone Hcl 0.4 Mg/Ml Vial IV PUSH Q2M PRN Opiate Reversal Olmesartan 40 mg 02/06/22 09:00 02/06/22 09:13 Olmesartan Medoxomil 20 Mg Tablet PO 40 mg DAILY JONATHAN Administration Ondansetron HCl 4 mg 02/03/22 17:48 Ondansetron Inj 4 Mg/2 Ml Vial IV PUSH Q4H PRN Nausea And Vomiting Polyethylene Glycol 17 gm 02/04/22 09:00 02/06/22 09:11 Polyethylene Glycol 3350 17 Gm Powd.Pack PO 17 gm QAM JONATHAN Administration Senna/Docusate Sodium 2 tab 02/03/22 17:48 02/06/22 09:11 Senna/Docusate Sodium Tablet PO 2 tab BID JONATHAN Administration Sertraline HCl 25 mg 02/03/22 09:00 02/06/22 09:11 Sertraline Hcl 25 Mg Tablet PO 25 mg DAILY JONATHAN Administration Tramadol HCl 25 mg 02/02/22 22:39 02/04/22 08:21 Tramadol Hcl (*Crx) 25 Mg Tablet PO 25 mg Q6H PRN Administration Pain 6-10 Radiology Results: ITS Impressions Hip/Pelvis X-Ray 02/02/22 15:26 Impression: 1: Mildly displaced comminuted right femoral intertrochanteric fracture. Intraoperative X-Ray 02/03/22 16:38 IMPRESSION: 1. Near-anatomic alignment post open reduction internal fixation of a mildly comminuted intratrochanteric fracture of the proximal right femur. See procedure note for further detail. Hand X-Ray 02/04/22 15:36 IMPRESSION: 1. No acute osseous abnormality. 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 Labs Labs: Laboratory Results - last 24 hr 02/06/22 02/06/22 06:23 06:23 WBC 7.1 RBC 3.98 L Hgb 12.6 L Hct 38.1 L MCV 95.7 MCH 31.7 MCHC 33.1 RDW 13.5 Plt Count 247 MPV 9.7 Immature Gran % (Auto) 0.4 Neut % (Auto) 76.3 H Lymph % (Auto) 10.3 L [place] % (Auto) 9.7 H Eos % (Auto) 2.7 Baso % (Auto) 0.6 Lymph # (Auto) 0.73 L [place] # (Auto) 0.7 H Eos # (Auto) 0.2 Baso # (Auto) 0.0 Abs Immat Gran (auto) 0.03 Absolute Neuts (auto) 5.4 Absolute Nucleated RBC 0.0 Nucleated RBC % 0.0 Sodium 137 Potassium 3.7 Chloride 106 Carbon Dioxide 24 Anion Gap 7 L BUN 17 Creatinine 0.80 Estim Creat Clear Calc 55 Estimated GFR > 60 Glucose 131 H Calcium 8.0 L Magnesium 1.8 Total
[2022-02-06 15:00] VITALS: BP 117/56; PULSE 62; RESP 18; TEMP 36.3; O2SAT 100
[2022-02-06 20:00] VITALS: PULSE 67; RESP 16; O2SAT 92
[2022-02-06 21:37] VITALS: BP 180/86; PULSE 67; RESP 16; TEMP 36.5; O2SAT 92
[2022-02-07 06:00] VITALS: BP 167/103; PULSE 59; RESP 16; TEMP 36.3; O2SAT 98
[2022-02-07 06:25] LABS: Basophils Percent Auto 0.4 % (0.2-1.2); Eosinophils Absolute Auto 0.2 K/mm3 (0-0.3); Eosinophils Percent Auto 2.6 % (0-4.4); Hematocrit 37.6 % (42.0-52.0); Hemoglobin 12.4 g/dL (14.0-18.0); Immature Granulocyte Absolute 0.02 K/mm3 (0.00-0.031); Immature Granulocyte Percent A 0.3 % (0-0.5); Lymphocytes Absolute Auto 0.91 K/mm3 (0.9-3.2); Lymphocytes Percent Auto 11.9 % (18.3-44.2); Mean Corpuscular Hemoglobin 31.6 pg (26-34); Mean Corpuscular Volume 95.7 fl (80-100); Mean Platelet Volume 9.4 fl (7.4-10.4); Monocytes Percent Auto 13.6 % (2.6-8.5); Neutrophils Absolute Auto 5.4 K/mm3 (1.3-6.7); Neutrophils Percent Auto 71.2 % (45.5-73.1); Platelet Count Result 286 k/mm3 (150-375); Red Blood Count 3.93 M/mm3 (4.6-6.20); Red Cell Distribution Width 13.5 % (11.5-14.5); White Blood Count 7.6 K/mm3 (4.5-10.0)
[2022-02-07 06:40] LABS: Alanine Aminotransferase 22 U/L (4-50); Albumin Level 3.4 g/dL (3.5-5.1); Alkaline Phosphatase 99 U/L (38-126); Anion Gap 6 mmol/L (8-16); Aspartate Amino Transferase 44 U/L (17-59); Bilirubin,Total 1.6 mg/dL (0.2-1.3); Blood Urea Nitrogen 18 mg/dL (9-20); Calcium 8.3 mg/dL (8.4-10.2); Carbon Dioxide 28 mmol/L (22-30); Chloride 106 mmol/L (98-107); Estimated CRCL calculation 49 ml/min; Estimated Glomerular Filt Rate > 60; Glucose 132 mg/dL (65-110); Potassium 3.7 mmol/L (3.4-5.0); Sodium 140 mmol/L (137-145)
[2022-02-07] MEDS: LEVOTHYROXINE SODIUM 125 MCG TABLET PO (06:41)
[2022-02-07] MEDS: SERTRALINE HCL 25 MG TABLET PO (09:03)
[2022-02-07] MEDS: SENNA/DOCUSATE SODIUM TABLET 2 TAB PO ×2 (09:03→16:51)
[2022-02-07] MEDS: CELECOXIB 200 MG CAPSULE PO (09:03)
[2022-02-07] MEDS: DONEPEZIL HCL 10 MG TABLET PO (09:03)
[2022-02-07] MEDS: FONDAPARINUX SODIUM 2.5 MG/0.5 ML SYRINGE SUB-Q (09:03)
[2022-02-07] MEDS: amLODIPine BESYLATE 5 MG TABLET 10 MG PO (09:03)
[2022-02-07] MEDS: OLMESARTAN MEDOXOMIL 20 MG TABLET 40 MG PO (09:03)
[2022-02-07] MEDS: polyethylene glycoL 3350 17 GM POWD.PACK PO (09:16)
[2022-02-07] MEDS: KETOROLAC 15 MG/ML VIAL (*BKC) IV PUSH (09:56)
--- NOTE | 2022-02-07 10:00 | P.DS_ITS ---
DS: Admitting Diagnosis Discharge Date 02/07/22 1000 Admitting Diagnosis Hip fracture DS: Discharge Diagnosis Discharge Diagnosis (1) Closed intertrochanteric fracture of right femur: Onset Date: 02/02/22 Qualifiers: Encounter type: subsequent encounter Fracture alignment: displaced Fracture healing: with routine healing Qualified Code(s): S72.141D - Displaced intertrochanteric fracture of right femur, subsequent encounter for closed fracture with routine healing Code(s): S72.141A - Displaced intertrochanteric fracture of right femur, initial encounter for closed fracture Status: Acute Assessment and Plan: * Imaging showed a close inter trochanteric fracture of the right femur * Surgical repair 02/03/22 * Analgesics: Tramadol, Celebrex * Added on time dose of toradol * Bowel Miralax and senna * Zofran for antiemetics * Post op care per ortho * Cefazolin x 3 bags * EKG SB * DVT prophylaxis Fondaparinux 2.5mg Sub Q Daily * Wt bearing as tolerated * PT/OT (2) Fall from ground level: Code(s): W18.30XA - Fall on same level, unspecified, initial encounter Status: Acute Assessment and Plan: * Ambulates with a cane or walker at baseline * not always compliant * Fall on the right side * xray shows a femur fracture (3) Dementia: Code(s): F03.90 - Unspecified dementia without behavioral disturbance Status: Acute Assessment and Plan: * A&O x 1 * seems to be at baseline * Continue donepezil and sertraline (4) Hypertension: Code(s): I10 - Essential (primary) hypertension Status: Acute Assessment and Plan: * BP 185/86 * Continues to run high * antihypertensives restarted, increase amlodipine to 10mg PO, increased olmesartan to 40mg PO daily * Trend BP * adjust therapy indicated (5) Hypothyroidism (acquired): Code(s): E03.9 - Hypothyroidism, unspecified Status: Acute Assessment and Plan: * Continue levothyroxine * TSH 6.170, T4 0.98, T3 1.06 * Titrate levothyroxine as indicated (6) Urinary retention: Code(s): R33.9 - Retention of urine, unspecified Status: Acute Assessment and Plan: * Reported from the that patient does not urinate without standing * Urinary catheter in place right now * Will work with PT to get the catheter out * bladder scan PRN DS: Summary Hospital Course Hospital Course: Patient is an 86 year old male with a past medical history of dementia, hypothyroidism, hypertension who presented to the ED after ground level fall. X-ray revealed the patient had a right femur fracture. Orthopedics was consulted and patient was taken to the OR for surgical repair. Is reported the patient is to use a walker with activity and mobility. However patient was not as good remembering that. Patient has been working with PT and OT and has been doing well getting to the chair. Pain has been ongoing issue as the patient is not able to take strong pain meds due to mental side effects. Patient denies any complaints. Patient feels okay. He denies any chest pain, shortness of breath, sweats, fevers, chills. Patient stable at this time for discharge and will be discharging to a rehab facility. Status at Discharge Functional status at discharge: uses cane/walker Overall status at discharge: patient is progressing back to baseline Time Spent with Patient Time attestation: To
--- NOTE | 2022-02-07 10:00 | PM.DS ---
DS: Admitting Diagnosis Discharge Date 02/07/22 1000 Admitting Diagnosis Hip fracture DS: Discharge Diagnosis Discharge Diagnosis (1) Closed intertrochanteric fracture of right femur: Onset Date: 02/02/22 Qualifiers: Encounter type: subsequent encounter Fracture alignment: displaced Fracture healing: with routine healing Qualified Code(s): S72.141D - Displaced intertrochanteric fracture of right femur, subsequent encounter for closed fracture with routine healing Code(s): S72.141A - Displaced intertrochanteric fracture of right femur, initial encounter for closed fracture Status: Acute Assessment and Plan: Imaging showed a close inter trochanteric fracture of the right femur Surgical repair 02/03/22 Analgesics: Tramadol, Celebrex Added on time dose of toradol Bowel Miralax and senna Zofran for antiemetics Post op care per ortho Cefazolin x 3 bags EKG SB DVT prophylaxis Fondaparinux 2.5mg Sub Q Daily Wt bearing as tolerated PT/OT (2) Fall from ground level: Code(s): W18.30XA - Fall on same level, unspecified, initial encounter Status: Acute Assessment and Plan: Ambulates with a cane or walker at baseline not always compliant Fall on the right side xray shows a femur fracture (3) Dementia: Code(s): F03.90 - Unspecified dementia without behavioral disturbance Status: Acute Assessment and Plan: A&O x 1 seems to be at baseline Continue donepezil and sertraline (4) Hypertension: Code(s): I10 - Essential (primary) hypertension Status: Acute Assessment and Plan: BP 185/86 Continues to run high antihypertensives restarted, increase amlodipine to 10mg PO, increased olmesartan to 40mg PO daily Trend BP adjust therapy indicated (5) Hypothyroidism (acquired): Code(s): E03.9 - Hypothyroidism, unspecified Status: Acute Assessment and Plan: Continue levothyroxine TSH 6.170, T4 0.98, T3 1.06 Titrate levothyroxine as indicated (6) Urinary retention: Code(s): R33.9 - Retention of urine, unspecified Status: Acute Assessment and Plan: Reported from the that patient does not urinate without standing Urinary catheter in place right now Will work with PT to get the catheter out bladder scan PRN DS: Summary Hospital Course Hospital Course: Patient is an 86 year old male with a past medical history of dementia, hypothyroidism, hypertension who presented to the ED after ground level fall. X-ray revealed the patient had a right femur fracture. Orthopedics was consulted and patient was taken to the OR for surgical repair. Is reported the patient is to use a walker with activity and mobility. However patient was not as good remembering that. Patient has been working with PT and OT and has been doing well getting to the chair. Pain has been ongoing issue as the patient is not able to take strong pain meds due to mental side effects. Patient denies any complaints. Patient feels okay. He denies any chest pain, shortness of breath, sweats, fevers, chills. Patient stable at this time for discharge and will be discharging to a rehab facility. Status at Discharge Functional status at discharge: uses cane/walker Overall status at discharge: patient is progressing back to baseline Time Spent with Patient Time attestation: Total time spent providing and/or coordinating discharge services: 48 minutes Time spent: Greater than 30 minutes Specific discharge activities: Diagnostic testing, chart review, developing a treatment plan, education, care coordination documentation, physical exam, result review Exam Const: General: cooperative, healthy appearing, no acute distress, well developed, alert and awake Nutritional Appearance: well nourished Orientation/consciousness: oriented to person, oriented to place, oriented
[2022-02-07] MEDS: ONDANSETRON INJ 4 MG/2 ML VIAL IV PUSH (10:37)
--- NOTE | 2022-02-07 13:33 | PM.PNORT ---
Progress Note: A&P Assessment and Plan (1) Closed intertrochanteric fracture of right femur: Onset Date: 02/02/22 Qualifiers: Encounter type: subsequent encounter Fracture alignment: displaced Fracture healing: with routine healing Qualified Code(s): S72.141D - Displaced intertrochanteric fracture of right femur, subsequent encounter for closed fracture with routine healing Code(s): S72.141A - Displaced intertrochanteric fracture of right femur, initial encounter for closed fracture Status: Acute Assessment and Plan: postop day 4 right hip intertrochanteric fracture. Stable at this time from orthopedic standpoint. Continue with PT/OT. Weight bear as tolerated. Follow up in orthopedic office in 4 to 5 weeks. Aspirin for DVT prophylaxis as patient is a fall risk. May stop Arixtra at the time of discharge. Right hand x-rays negative for fracture or acute changes. Severe arthritis noted. Continue conservative care. Subjective Subjective Date/Time Seen: 02/07/22 13:33 Post Op day: 4 Principal diagnosis: Right hip IT fracture Interval history: no new complaints Exam Const: General: healthy appearing and confusion; No in distress Orientation/consciousness: No oriented to person, No oriented to place, No oriented to time, No patient oriented x3 and confusion HENMT: Head: normal to inspection, normocephalic and atraumatic Eyes: Conjunctivae: conjunctivae normal Sclera: sclerae normal Resp: Effort & Inspection: normal respiratory effort and no audible wheezes Neuro: General: No patient oriented x3 and confusion Extrem: Other: Right hip dressing clean and dry. Moves toes. Good sensation to touch. Good capillary refill and palpable DP pulses. Negative Homans sign. Psych: Affect: normal affect Objective Data Vital Signs Vital Signs: Vital Signs - 24 hr 02/06/22 15:00 02/06/22 20:00 02/06/22 21:37 Temperature 97.4 F L 97.7 F Pulse Rate 62 67 67 Respiratory Rate 18 16 16 Blood Pressure 117/56 L 180/86 H Pulse Oximetry 100 92 92 02/07/22 06:00 Temperature 97.3 F L Pulse Rate 59 L Respiratory Rate 16 Blood Pressure 167/103 H Pulse Oximetry 98 Intake/Output Intake/Output: Intake & Output 02/04/22 02/05/22 02/06/22 02/07/22 23:59 23:59 23:59 23:59 Intake Total 3580 2980 470 240 Output Total 300 1300 Balance 3280 1680 470 240 Meds/Results Medications: Active Medications Generic Name Dose Route Start Last Admin Trade Name Freq PRN Reason Stop Dose Admin Acetaminophen 650 mg 02/02/22 22:38 Acetaminophen 325 Mg Tablet PO Q6H PRN Mild Pain (1-5) Or Fever Amlodipine Besylate 10 mg 02/04/22 09:00 02/07/22 09:03 Amlodipine Besylate 5 Mg Tablet PO 10 mg DAILY JONATHAN Administration Celecoxib 200 mg 02/04/22 08:00 02/07/22 09:03 Celecoxib 200 Mg Capsule PO 200 mg DAILY@0800 JONATHAN Administration Donepezil HCl 10 mg 02/04/22 09:00 02/07/22 09:03 Donepezil Hcl 10 Mg Tablet PO 10 mg DAILY JONATHAN Administration Fondaparinux 2.5 mg 02/04/22 09:00 02/07/22 09:03 Fondaparinux Sodium 2.5 Mg/0.5 Ml Syringe SUB-Q 2.5 mg DAILY JONATHAN Administration Levothyroxine Sodium 125 mcg 02/03/22 06:30 02/07/22 06:41 Levothyroxine Sodium 125 Mcg Tablet PO 125 mcg DAILY@0630 JONATHAN Administration Naloxone HCl 0.1 mg 02/03/22 17:48 Naloxone Hcl 0.4 Mg/Ml Vial IV PUSH Q2M PRN Opiate Reversal Olmesartan 40 mg 02/06/22 09:00 02/07/22 09:03 Olmesartan Medoxomil 20 Mg Tablet PO 40 mg DAILY JONATHAN Administration Ondansetron HCl 4 mg 02/03/22 17:48 02/07/22 10:37 Ondansetron Inj 4 Mg/2 Ml Vial IV PUSH 4 mg Q4H PRN Administration Nausea And Vomiting Polyethylene Glycol 17 gm 02/04/22 09:00 02/07/22 09:16 Polyethylene Glycol 3350 17 Gm Powd.Pack PO 17 gm QAM JONATHAN Administration Senna/Docusate Sodium 2 tab 02/03/22 17:48 02/07/22 09:03 Senna/Docusate Sodium Tablet PO
[2022-02-07 14:00] VITALS: BP 120/49; PULSE 89; RESP 18; TEMP 37; O2SAT 100
[2022-02-07 16:00] LABS: EDCOVIDSCREEN Negative (Negative)
== END 2022-02-07 19:45 | DRG 482 ==
LOC: ANHED 16:47 → ANH3MEDSUR 18:37
PROVIDERS: Emergency Medicine; Orthopaedic Surgery; Physician Assistant; Admitting Provider Internal Medicine; Emergency Provider Nurse Practitioner Family; PCP Internal Medicine; Visit Provider Nurse Practitioner
PROC: 0QS636Z Reposition Right Upper Femur with Intramedullary Internal Fixation Device, Percutaneous Approach (ICD-10-PCS; CPT 27245; principal; 2022-02-03 15:00)
DX: S72.141A Displaced intertrochanteric fracture of right femur, initial encounter for closed fracture (principal); W18.39XA Other fall on same level, initial encounter; F03.90 Unspecified dementia, unspecified severity, without behavioral disturbance, psychotic disturbance, mood disturbance, and anxiety; E03.9 Hypothyroidism, unspecified; I10 Essential (primary) hypertension; R33.9 Retention of urine, unspecified; Z20.822 Contact with and (suspected) exposure to COVID-19; Z98.42 Cataract extraction status, left eye; Z98.41 Cataract extraction status, right eye; Z87.891 Personal history of nicotine dependence
CPT/HCPCS: 36415; 73130; 73502; 80048; 80053; 82948; 83735; 84439; 84443; 84480; 85025; 85027; 85610; 86850; 86900; 86901; 87426; 93005; 96374; 96375; 96376; 97110; 97116; 97162; 97166; 97530; 97535; 99285; A9270; C1713; C9803; G0378; J0360; J0690; J1100; J1652; J1885; J2270; J2370; J2405; J2704; J3010; J7030; J7120; U0003; U0005

== ENCOUNTER 2022-02-09 02:00 | Emergency (ER) | payer OTHER, SELFPAY ==
--- NOTE | ~2022-02-09 | CT_ITS ---
EXAMINATION: CT brain wo con EXAM DATE: 02/09/2022 02:52 INDICATION: Fall, right hip pain. Recent fixation. Head injury. TECHNIQUE: Spiral CT of the head was performed without contrast. Axial, coronal and sagittal images were reviewed. The dose-length product (DLP) for this examination was 681.00 mGy-cm. The exposure w as tailored according to patient size, and iterative reconstruction (ASIR) was used as additional dos e reduction technique. There is no prior study for comparison. FINDINGS: There is no acute intraparenchymal hemorrhage. No evidence of intraparenchymal brain mass lesion. No evidence of acute infarction. Please note that initial head CT has limited sensitivity f or small or acute infarctions. There is moderate periventricular and subcortical hypodensity, nons pecific but probably related to small vessel ischemic disease. There is moderate prominence of the sulci and ventricles related to cerebral atrophy. There is intracranial carotid arteriosclerosis. There are no extra-axial collections. There is no mass effect or midline shift. Patient has had brennen ateral ocular lens surgery. Small left frontal scalp contusion. The visualized sinuses and mastoid a ir cells are well aerated. IMPRESSION: 1. Small left frontal scalp contusion. 2. No acute intracranial findings. 3. Chronic age related findings. Reviewed, dictated and finalized at location B.
--- NOTE | ~2022-02-09 | CT_ITS ---
EXAMINATION: CT hip RT wo con DATE: 02/09/2022 02:52 INDICATION: Right hip pain post fall after recent internal fixation. TECHNIQUE: High resolution computed tomography (CT) of the right hip was performed without intravenou s contrast. Additional sagittal and coronal reconstructions were performed. Automated exposure contro l and iterative reconstruction technique were employed. The dose-length product was 443.06 mGy-cm. COMPARISON: Right hip radiographs dated 02/02/2022 and 02/03/2022 FINDINGS: Again seen is a comminuted intratrochanteric fracture of the proximal right femur with antegrade intr amedullary alesia, femoral neck dynamic compression screw and distal interlocking screw fixation. See te xt fracture remains in near-anatomic alignment with minimal residual distraction of the lesser trocha nteric fragment which is not included within the fixation. No new fractures identified. There is some developing calcified callus formation along the lateral margin of the femoral diaphysis. Small focus of likely residual postoperative gas in the soft tissues near the distal interlocking screw. Mild le ft hip osteoarthritis with no joint effusion. Prominent distention of the bladder. Scattered atherosc lerotic calcifications in the pelvis and proximal right thigh. The visualized pelvis is otherwise unr emarkable. IMPRESSION: 1. Internally fixed comminuted intratrochanteric fracture of the proximal right femur which is in unc hanged near-anatomic alignment. No acute osseous abnormality. Reviewed, dictated and finalized at location A. IMPRESSION: 1. Internally fixed comminuted intratrochanteric fracture of the proximal right femur which is in unchanged near-anatomic alignment. No acute osseous abnormal ity.
[2022-02-09 02:00] VITALS: BP 149/60; PULSE 63; RESP 18; TEMP 36.6; O2SAT 95
--- NOTE | 2022-02-09 02:26 | ED.GENADULT ---
HPI - General Adult General Chief complaint: Fall Stated complaint: FALL Source: patient, RN notes reviewed and old records reviewed Mode of arrival: EMS Limitations: dementia History of Present Illness HPI narrative: 86-year-old male with history of dementia presents to the emergency department from [facility] after having a ground-level fall and reinjuring his right hip. Patient had a right intertrochanteric fracture of the right hip that was repaired with an intramedullary hip screw and fixation by Dr. Huber on 02/03. Patient was discharged to the [facility] today. Patient was instructed to be nonweightbearing but patient does have dementia and in the middle the night he grabbed his roommates walker and attempted to walk to the bathroom falling and injuring his right hip. Patient did open his surgical incision approximately 1 inch. No active bleeding upon arrival. Patient denies any significant complaint. Related Data Home Medications Medication Instructions Recorded Confirmed donepezil 10 mg PO DAILY 07/02/20 02/03/22 levothyroxine 125 mcg PO DAILY 08/30/20 02/03/22 sertraline 25 mg PO DAILY 02/02/22 02/03/22 Allergies Allergy/AdvReac Type Severity Reaction Status Date / Time atorvastatin Allergy Unknown Verified 02/09/22 02:12 Review of Systems Review of Systems: Patient denies any complaints ROS unobtainable: Yes unobtainable due to mental status PMFSH Past Medical History Medical History (Updated 02/10/22 @ 00:00 by Background Daemon) Dementia Hypertension Hypothyroidism (acquired) Postoperative wound dehiscence Surgical History Surgical History History of back surgery History of cataract extraction with lens replacement History of lumbar laminectomy L4-L5. Family History Family History Other Family history unknown Social History Social History Social History: Surrogate decision maker: Dixie Shoemaker, . Code status: Full code. Smoking status: Former smoker Alcohol intake: never Substance use: never Additional living arrangements comments: The patient lives with his in [place]. 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 Spiritual care concerns: No Exam Narrative: APPEARANCE: Well appearing, no pain, no distress, well-nourished. HEAD: normocephalic, atraumatic. EYES: PERRLA/EOMI, conjunctivae clear. NOSE: Normal no drainage NECK: Supple. No adenopathy, no masses. RESPIRATORY: Airway patent, respirations nonlabored. Clear to auscultation bilaterally, no rales, rhonchi, wheezing. CARDIOVASCULAR: Regular rate and rhythm without murmurs rubs or gallops. ABDOMINAL: Soft, nontender, nondistended, normal bowel sounds MUSCULOSKELETAL: Moves all extremities. Patient denies any pain with passive range of motion of the right hip. Lateral surgical incision is open approximately 1 inch with no active bleeding. NEURO: Alert. Cranial nerves II through XII intact. Grossly intact SKIN: Warm, dry. Normal Color Course Course Emergency Course: Case was discussed with Dr. Arzate who is on-call for Dr. Huber. Plan is to keep the patient in the emergency department to be evaluated by Dr. Huber in the morning and the decision to take the patient back to the operating room or clean the wound in the emergency department will be made at that time. Patient was evaluated by Dr Huber and he was comfortable with the patient being discharged back to the [facility], patient was started on Keflex. Vital Signs Vital signs: Vital Signs Temperature 97.9 F 02/09/22 02:00 Pulse Rate 63 02/09/22 02:00 Respiratory Rate 18 02/09/22 02:00 Blood Pressure 149/60 H 02/09/22 02:00 Pulse Oximetry 95 02/09/22 02:00 Temperature 97.9 F 02/09/22 02:00 Pulse Rate 64 02/09/22 08:57 Respirat
[2022-02-09 05:01] VITALS: O2SAT 98
[2022-02-09 05:04] VITALS: BP 165/82; O2SAT 99
--- NOTE | 2022-02-09 05:04 | PC.NURSE ---
Dressing applied to right hip. Clear draniage noted. Dressing applied with telfa, gauze, and tegaderm. Pt tolerated well. PT had urinary incontience. Pericare performed and pt changed into fresh gown. Pt tolerated well.
[2022-02-09 06:10] VITALS: BP 183/77; PULSE 75; RESP 20; O2SAT 98
--- NOTE | 2022-02-09 08:31 | PM.CNOR ---
Assessment and Plan Assessment and plan (1) Postoperative wound dehiscence: Qualifiers: Encounter type: initial encounter Qualified Code(s): T81.31XA - Disruption of external operation (surgical) wound, not elsewhere classified, initial encounter Code(s): T81.31XA - Disruption of external operation (surgical) wound, not elsewhere classified, initial encounter Status: Acute Assessment and Plan: Fall on right side last night after patient attempted to get up without assistance. Superficial wound dehiscence of the most proximal incision. No signs of infection. think will do well with secondary intention healing and dressings. Recommend dry gauze dressings with op-site with daily dressing change at long-term. May shower and wash. Notify office for any changes. Agree with antibiotic coverage for 1 week. (2) Closed intertrochanteric fracture of right femur: Onset Date: 02/02/22 Qualifiers: Encounter type: subsequent encounter Fracture alignment: displaced Fracture healing: with routine healing Qualified Code(s): S72.141D - Displaced intertrochanteric fracture of right femur, subsequent encounter for closed fracture with routine healing Code(s): S72.141A - Displaced intertrochanteric fracture of right femur, initial encounter for closed fracture Status: Acute Assessment and Plan: 5 days status post intramedullary nail fixation. CT scan reviewed which shows well-maintained alignment and no interval change. Internal fixation in good position. May continue with weight-bearing as tolerated. Continue PT / OT at long-term. Follow up in orthopedic office as scheduled in 5 weeks. (3) Dementia: Qualifiers: Dementia type: unspecified type Dementia behavioral disturbance: with behavioral disturbance Qualified Code(s): F03.91 - Unspecified dementia with behavioral disturbance Code(s): F03.90 - Unspecified dementia without behavioral disturbance Status: Acute History of Present Illness HPI Consult date: 02/09/22 Requesting physician: Clovis Bustillo MD Chief complaint: FALL Narrative: 86-year-old gentleman with severe dementia status post intramedullary nail fixation for right hip fracture 5 days ago. Was discharged to the long-term last night. Apparently fell Sometime in the night on of the right side. brought to the emergency room for wound dehiscence. Review of Systems Constitutional: Constitutional: Denies fever(s) Eyes: Eyes: Denies blurry vision ENT: Reports Normal hearing present Cardiovascular: Cardiovascular: Denies chest pain and Denies dyspnea Respiratory: Respiratory: Denies dyspnea and Denies wheezing Gastrointestinal: Gastrointestinal: Denies abdominal pain Genitourinary: Genitourinary: Denies urinary urgency Musculoskeletal: Musculoskeletal: Reports as per HPI and Denies numbness Integumentary/Breasts: Skin/Breast: Denies changing lesions and Denies sores Neurologic: Reports Normal hearing present, Reports behavioral changes, Reports confusion, Denies numbness and Denies convulsions Psychiatric: Psychiatric: Denies behavioral changes, Reports confusion (Disoriented x3) and Denies hallucinations Endocrine: Endocrine: Denies heat intolerance Hematologic/Lymphatic: Hematologic/Lymphatic: Denies easy bleeding Allergic/Immunologic: Allergic/Immunologic: Denies wheezing PMFSH Past Medical History Medical History (Updated 02/09/22 @ 08:36 by Fede Huber MD) Dementia Hypertension Hypothyroidism (acquired) Postoperative wound dehiscence Surgical History Surgical History History of back surgery History of cataract extraction with lens replacement History of lumbar laminectomy L4-L5. Family History Family History Other Family history unknown Social History Social History (Review
[2022-02-09] MEDS: CEPHALEXIN 250 MG CAPSULE PO (08:55)
[2022-02-09 08:57] VITALS: BP 184/79; PULSE 64; RESP 16; O2SAT 97
== END 2022-02-09 09:19 | disposition home or self-care (01) ==
PROVIDERS: Emergency Provider Emergency Medicine; PCP Internal Medicine
DX: T81.31XA Disruption of external operation (surgical) wound, not elsewhere classified, initial encounter (principal); S72.141D Displaced intertrochanteric fracture of right femur, subsequent encounter for closed fracture with routine healing; F03.91 Unspecified dementia, unspecified severity, with behavioral disturbance; I10 Essential (primary) hypertension; E03.9 Hypothyroidism, unspecified; Z98.49 Cataract extraction status, unspecified eye; Z96.1 Presence of intraocular lens; Z87.891 Personal history of nicotine dependence; W19.XXXA Unspecified fall, initial encounter; X58.XXXD Exposure to other specified factors, subsequent encounter
CPT/HCPCS: 70450; 73700; 99284; A9270